=== PATIENT | female | born 1975 | race Caucasian/White ===

== ENCOUNTER → 2017-12-26 09:18 | Outpatient (CLI) | payer OTHER, SELFPAY ==
[2017-12-26 10:11] LABS: Add Manual Diff / Slide Review NO; Basophils Percent Auto 0.6 % (0-2); Eosinophils Percent Auto 2.1 % (2-4); Hematocrit 39.1 % (36-46); Hemoglobin 13.2 g/dL (12.0-16.0); Lymphocytes Percent Auto 32.7 % (25-40); Mean Corpuscular HGB Conc 33.9 % (30-36); Mean Corpuscular Hemoglobin 32.5 PG (26-34); Mean Corpuscular Volume 95.8 fL (80-100); Monocytes Percent Auto 11.5 % (3-14); Neutrophils Absolute Auto 2500 /uL (3000-5900); Neutrophils Percent Auto 53.1 % (50-75); Platelet Count 264 X10^3/uL (150-400); Red Blood Cell Count 4.08 X10^6/uL (4.0-5.2); Red Cell Distribution Width 12.7 % (11.6-14.8); White Blood Cell Count 4.8 X10^3/uL (4.5-11.0)
[2017-12-26 10:44] LABS: Alanine Aminotransferase 29 IU/L (9-52); Albumin 4.5 g/dL (3.5-5.0); Albumin Globulin Ratio 1.5 (1.0-2.8); Alkaline Phosphatase 45 U/L (38-126); Aspartate Aminotransferase 29 IU/L (14-36); Bilirubin Total 0.6 mg/dL (0.2-1.3); Blood Urea Nitrogen 12 mg/dL (7-17); Carbon Dioxide 27 mmol/L (22-32); Chloride 101 mmol/L (98-107); Estimated Glomerular Filt Rate > 60.0 mL/min (>60); Globulin 3.1 g/dL (1.7-4.1); Glucose 90 mg/dL (70-100); HEMOLYSIS < 15 (0-50); Potassium 4.2 mmol/L (3.4-5.1); Sodium 140 mmol/L (137-145); Total Protein 7.6 g/dL (6.3-8.2)
[2017-12-26 11:10] LABS: Cortisol AM (Before 10AM) 10.6 ug/dL (4.46-22.7)
== END ==
PROVIDERS: PCP Physician Assistant; Visit Provider Internal Medicine
DX: E27.49 Other adrenocortical insufficiency (principal); R55 Syncope and collapse
CPT/HCPCS: 36415; 80053; 82533; 85025

== ENCOUNTER → 2018-09-20 10:32 | Outpatient (CLI) | payer OTHER, SELFPAY ==
--- NOTE | 2018-09-20 | DI.RAD.S_ITS ---
PROCEDURE: XR HIP W PEL IF DONE LT MIN 4V INDICATIONS: PAIN TECHNIQUE: AP pelvis with lateral view(s) of the bilateral hip(s). COMPARISON: [facility], CR, [id number] W PEL IF PERFORMED, 01/18/2017, 16:51. FINDINGS: Bones: No fractures or dislocations. Pelvic ring appears intact. No suspicious bony lesions. Soft tissues: The visualized bowel gas pattern is normal. No suspicious soft tissue calcifications. IMPRESSION: No acute radiographic findings. Dictated by: Yesenia Anderson M.D. on 09/20/2018 at 12:35 Approved by: Yesenia Anderson M.D. on 09/20/2018 at 12:35
--- NOTE | 2018-09-20 | DI.RAD.S_ITS ---
PROCEDURE: XR LUMBAR SPINE 2-3V INDICATIONS: PAIN TECHNIQUE: 3 views of the lumbar spine were acquired. COMPARISON: None. FINDINGS: Bones: 5 [id number] vertebrae are present. There is normal bony alignment. No vertebral body compression fractures. No suspicious bony lesions. Soft tissues: Overlying bowel gas pattern is normal. No suspicious soft tissue calcifications. IMPRESSION: No acute radiographic findings. Dictated by: Yesenia Anderson M.D. on 09/20/2018 at 12:34 Approved by: Yesenia Anderson M.D. on 09/20/2018 at 12:35
== END ==
PROVIDERS: PCP Internal Medicine; Visit Provider Internal Medicine
DX: M54.9 Dorsalgia, unspecified (principal); S79.912A Unspecified injury of left hip, initial encounter; S79.911A Unspecified injury of right hip, initial encounter
CPT/HCPCS: 72100; 73522

== ENCOUNTER → 2019-03-13 13:56 | Outpatient (CLI) | payer OTHER, SELFPAY ==
--- NOTE | 2019-03-13 | DI.RAD.S_ITS ---
PROCEDURE: XR HAND LT MIN 3V INDICATIONS: BILATERAL PAIN TECHNIQUE: 3 views of the hand(s) acquired. COMPARISON: None. FINDINGS: Bones: No acute fractures or dislocations, but the morphology of the fifth metatarsal suggests a prior fracture with healing from the distant past and that area.. Carpal bones are normally aligned. No suspicious bony lesions. Soft tissues: No suspicious soft tissue calcifications. IMPRESSION: Mild degenerative osteoarthritic joint space narrowing at the distal interphalangeal joints, no erosive arthritis is found. Morphology of the fifth metacarpal suggests old trauma. Dictated by: Juan Luis Harrison M.D. on 03/13/2019 at 16:33 Approved by: Juan Luis Harrison M.D. on 03/13/2019 at 16:34
--- NOTE | 2019-03-13 | DI.RAD.S_ITS ---
PROCEDURE: XR HAND RT MIN 3V INDICATIONS: BILATERAL PAIN TECHNIQUE: 3 views of the hand(s) acquired. COMPARISON: [facility], CR, XR HAND LT MIN 3V, 03/13/2019, 13:55. FINDINGS: Bones: No fractures or dislocations. Carpal bones are normally aligned. No suspicious bony lesions. Only a slight degree of interphala ngeal degenerative joint space narrowing is noted at the distal joints of the fingers, no erosive arthritis is found. Soft tissues: No suspicious soft tissue calcifications. IMPRESSION: No erosive arthritis suspected. Only a slight degree of degenerative osteoarthritis is currently seen. Dictated by: Juan Luis Harrison M.D. on 03/13/2019 at 16:34 Approved by: Juan Luis Harrison M.D. on 03/13/2019 at 16:35
[2019-03-13 15:23] LABS: Erythrocyte Sedimentation Rate 4 MM/HR (0-20); Uric Acid 5.7 mg/dL (2.5-6.2)
[2019-03-20 16:22] LABS: ANA Screen, IFA NEGATIVE (NEGATIVE)
== END ==
PROVIDERS: PCP Internal Medicine; Visit Provider Internal Medicine
DX: M13.0 Polyarthritis, unspecified (principal)
CPT/HCPCS: 36415; 73130; 84550; 85651; 86038

== ENCOUNTER 2019-03-29 13:19 | Emergency (ER) | payer OTHER, SELFPAY ==
[2019-03-29 13:28] VITALS: BP 154/92; PULSE 86; RESP 16; TEMP 37.1; O2SAT 100
--- NOTE | 2019-03-29 13:35 | DI.RAD.S_ITS ---
PROCEDURE: XR ANKLE RT MIN 3V INDICATIONS: ankle pain, difficulty bearing weight due to pain TECHNIQUE: 3 views of the ankle were acquired. COMPARISON: None. FINDINGS: Bones: No fractures or dislocations. Ankle mortise is normally aligned. No suspicious bony lesions. Soft tissues: No tibiotalar joint effusion. Achilles tendon appears normal. IMPRESSION: No acute fracture of the right ankle. Dictated by: Arden Alicea M.D. on 03/29/2019 at 13:35 Approved by: Arden Alicea M.D. on 03/29/2019 at 13:36
--- NOTE | 2019-03-29 13:35 | DI.RAD.S_ITS ---
PROCEDURE: XR TIBIA FUBULA RT 2V INDICATIONS: pain TECHNIQUE: 2 views of the tibia and fibula were acquired. COMPARISON: None. FINDINGS: Bones: No fractures or dislocations. No suspicious bony lesions. Soft tissues: No suspicious soft tissue calcifications or masses. IMPRESSION: No acute fractures of the right lower leg. Dictated by: Arden Alicea M.D. on 03/29/2019 at 13:29 Approved by: Arden Alicea M.D. on 03/29/2019 at 13:35
--- NOTE | 2019-03-29 13:43 | ED_ITS ---
HPI - Extremity Injury (Lower) <BAMBI Zhu - Last Filed: 03/29/19 15:18> General Chief Complaint: Extremity Injury, Lower Stated Complaint: Bad Lower Right Leg Pain Time Seen by Provider: 03/29/19 13:24 Source: patient Mode of arrival: Wheelchair Limitations: no limitations History of Present Illness HPI Narrative: This is a 44-year-old female, nonsmoker, who presents to ED with right distal lower extremity and ankle discomfort for last 2 weeks and which is worst today. Patient was at walk-in clinic and referred to ED for further evaluation and imaging tests. Patient does not remember obvious injury to her affected leg but she remembers she had ski boots on several days prior her discomfort started. Patient reports pain worse with bearing weight, walking, driving, or putting any pressure on affected leg. Patient has been limping for last 1 week. Patient reports intact sensation but increasing pain with range of motion of her ankle and foot. Patient denies currently taking estrogen supplements, prolonged travel or in bed rest, or history of blood clots. Patient has been using ibuprofen and Tylenol arthritis for discomfort with limited efficacy. Related Data Home Medications Medication Instructions Recorded Confirmed acetaminophen 325 mg PO PRN PRN #0 06/23/16 albuterol sulfate 3 ml INH QIDP PRN #0 06/23/16 omeprazole 40 mg PO QDAY #0 06/27/16 docusate sodium 200 mg PO QDAYP PRN #0 12/05/16 levothyroxine 200 mcg PO DAILY #0 12/05/16 03/29/19 ibuprofen 600 mg PO TID 03/29/19 03/29/19 meloxicam 15 mg PO DAILY 03/29/19 03/29/19 methylphenidate HCl 10 mg PO BID 03/29/19 methylphenidate HCl 54 mg PO DAILY 03/29/19 03/29/19 Allergies Allergy/AdvReac Type Severity Reaction Status Date / Time grass pollen-perennial rye, Allergy Severe anaphylacti Verified 03/29/19 13:34 standar c [GRASS POLL-PERENNIAL RYE,STD] beclomethasone Allergy Mild anaphylaxis Verified 03/29/19 13:34 [BECLOMETHASONE] montelukast [MONTELUKAST] Allergy Unknown RASH Verified 03/29/19 13:34 Review of Systems <BAMBI Zhu - Last Filed: 03/29/19 15:18> Review of Systems Narrative: General: Denies fever, chills, fatigue, malaise, sweats. HEENT: Denies sinus pain, ear pain, sore throat, difficulty swallowing, dizziness. Respiratory: Denies dyspnea, cough, wheezing, hemoptysis, sputum. Cardiovascular: Denies chest pain, palpitations, orthopnea, edema. Gastrointestinal: Denies nausea, vomiting, abdominal pain, diarrhea, constipation, melena. : Denies dysuria, frequency, incontinence, hematuria, urinary retention. Musculoskeletal: See HPI Skin: Denies rash, skin lesions, or other. Reports faint bruise on anterior mid costello possibly from wearing ski boots. Neurologic: Denies weakness, headache, numbness, change in speech, confusion, seizures, incoordination. Psychiatric: No concerning psychosocial issues. 12-point review of systems is negative except for those stated above. Patient History <BAMBI Zhu - Last Filed: 03/29/19 15:18> Medical History Hypothyroidism (Acute) Surgical History Status post hysterectomy (06/27/16) Status post ovarian cystectomy (06/27/16) Social History Smoking Status: Never smoker Smoking Status: Never smoker alcohol intake frequency: a few times a week Substance Use Type: does not use Exam <BAMBI Zhu - Last Filed: 03/29/19 15:18> Narrative Exam Narrative: General appearance: well developed, well nourished, in no acute distress. Head: normocephalic, atraumatic, no scalp lesions, non-tender. ENT: Hearing grossly intact. Nose without bleeding, purulent discharge or deviation. Mucous membrane moist, no mucosal lesion. Throat without erythema, tonsillar hypertrophy or exudate. Uvula in midline, airway patent. Neck/Thyroid: neck supple, full range of motion, no visible masses or meningeal signs. No JVD, non-tender without lymphadenopathy. Skin: Faint ecchymosis on anterior mid costello. no suspicious rashes, lesions over other visible areas. Warm and dry and appropriate color for ethnicity. Heart: no clubbing, no cyanosis, no edema. S1 and S2 normal. RRR w/o murmurs, clicks, or bruits. Lungs: Breathing even and unlabored. No stridor. No accessory muscles used. Able to speak in full sentences. Chest: normal shape and expansion. Abdomen: non-obese, non-distended. Neurologic: alert and oriented. Cognitive exam, HEEL BURNISHER and PNS grossly intact on informal exam. Psych: good eye contact, normal affect. Initial Vital Signs Initial Vital Signs: Vital Signs Temperature 98.7 F 03/29/19 13:28 Pulse Rate 86 03/29/19 13:28 Respiratory Rate 16 03/29/19 13:28 Blood Pressure 154/92 H 03/29/19 13:28 Pulse Oximetry 100 03/29/19 13:28 Extrem Right lower extremity: full ROM, hip/thigh Details: no tenderness and no swelling, knee Details: normal to inspection; no tenderness, lower leg Details: normal to inspection, tenderness Location: of the distal tibia (Medial aspect ) and ecchymosis (Faint discoloration in mid anterior costello); no abrasions, no lacerations, no crepitus, no deformity and no unusual warmth, ankle Details: normal to inspection, tenderness, swelling, no edema and normal ROM; no abrasions, no lacerations and no crepitus and foot Details: normal capillary refill, no edema, vascular exam Details: dorsalis pedis pulse present, tendon exam Details: active flexion normal and active extension normal and motor- sensory exam Details: light-touch normal; no abrasion, no laceration and no ecchymosis; no edema and joint enlargement noted <Rush Ayala MD - Last Filed: 03/30/19 08:21> Initial Vital Signs Initial Vital Signs: Vital Signs Temperature 98.7 F 03/29/19 13:28 Pulse Rate 86 03/29/19 13:28 Respiratory Rate 16 03/29/19 13:28 Blood Pressure 154/92 H 03/29/19 13:28 Pulse Oximetry 100 03/29/19 13:28 Procedures <BAMBI Zhu - Last Filed: 03/29/19 15:18> Orthopedic Splinting/Casting Injury #1: Side: right Lower Extremity Injury Location: ankle (and lower limb) Lower Extremity Immobilizer: boot orthosis Post splinting neuro exam: intact Post splinting vascular exam: intact Placed by: Nursing Additional Comments: Patient declines crutches due to history of arthritis and difficult time using it. Scores <BAMBI Zhu - Last Filed: 03/29/19 15:18> GCS [place] coma scale eye opening: Spontaneous [place] coma scale verbal response: Orientated [place] coma scale motor response: Obey commands Baljit coma scale total score: 15 Wells' Criteria for DVT Active Cancer (Treatment within 6 months): No Bedridden recently >3 days or major surgery within 4 weeks: No Calf Swelling >3cm compared to other leg: No Collateral (nonvericose) superficial veins present: No Entire leg swollen: No Localized tenderness along the deep vein system: No Pitting edema, confined to symtomatic leg: No Paralysis, paresis, or recent plaster immobilization of ext: No Previously documented DVT: No Alternative dx to DVT as likely or more likely: Yes Wells' criteria for DVT: -2 Course <BAMBI Zhu - Last Filed: 03/29/19 15:18> Orders Ordered: ED Orders 03/29/19 13:35 XR ankle RT min 3V Stat XR tibia fibula RT 2V Stat Vital Signs Vital signs: Vital Signs - 8 hr 03/29/19 13:28 03/29/19 15:11 Temperature 98.7 F Pulse Rate 86 87 Respiratory Rate 16 16 Blood Pressure 154/92 H Blood Pressure [Left Arm] 140/86 Pulse Oximetry 100 100 <Rush Ayala MD - Last Filed: 03/30/19 08:21> Orders Ordered: ED Orders 03/29/19 13:35 XR ankle RT min 3V Stat XR tibia fibula RT 2V Stat Vital Signs Vital signs: Vital Signs - 8 hr 03/29/19 13:28 03/29/19 15:11 Temperature 98.7 F Pulse Rate 86 87 Respiratory Rate 16 16 Blood Pressure 154/92 H Blood Pressure [Left Arm] 140/86 Pulse Oximetry 100 100 MDM - Extremity Injury (Lower) <BAMBI Zhu - Last Filed: 03/29/19 15:18> Differential Diagnosis Differential diagnosis: Likely ankle sprain and strain, ankle fracture and other (Stress fracture) Medical Records Attestation: I reviewed the patient's medical records. Imaging Data XR-Tib/fib RT: Radiologist's Impression: [address] [address] XRay Report Signed Patient: Taylor Scruggs R#: [id number] : 1975Acct:[id number] Age/Sex: 44 / FDate of Service: 03/29/19 Loc: ED Accession Number: [id number] Procedure: XR tibia fibula RT 2V Ordering Provider: Kartik Roldan PROCEDURE: XR TIBIA FUBULA RT 2V INDICATIONS: pain TECHNIQUE: 2 views of the tibia and fibula were acquired. COMPARISON: None. FINDINGS: Bones: No fractures or dislocations. No suspicious bony lesions. Soft tissues: No suspicious soft tissue calcifications or masses. IMPRESSION: No acute fractures of the right lower leg. Dictated by: Arden Alicea M.D. on 03/29/2019 at 13:29 Approved by: Arden Alicea M.D. on 03/29/2019 at 13:35 XR-Ankle RT: Radiologist's Impression: [address] [address] XRay Report Signed Patient: Taylor Scruggs R#: [id number] : 1975Acct:[id number] Age/Sex: 44 / FDate of Service: 03/29/19 Loc: ED Accession Number: [id number] Procedure: XR ankle RT min 3V Ordering Provider: Kartik Roldan PROCEDURE: XR ANKLE RT MIN 3V INDICATIONS: ankle pain, difficulty bearing weight due to pain TECHNIQUE: 3 views of the ankle were acquired. COMPARISON: None. FINDINGS: Bones: No fractures or dislocations. Ankle mortise is normally aligned. No suspicious bony lesions. Soft tissues: No tibiotalar joint effusion. Achilles tendon appears normal. IMPRESSION: No acute fracture of the right ankle. Dictated by: Arden Alicea M.D. on 03/29/2019 at 13:35 Approved by: Arden Alicea M.D. on 03/29/2019 at 13:36 MDM Narrative Medical decision making narrative: This is a 44-year-old female who presents to ED with right ankle and distal lower extremity pain for last 2 weeks which became worse today. Patient reports not remember certain injury or trauma to affected leg but associated possibly after wearing ski boots. Patient has distal pulse intact with sensation. Patient was able to plantar and dorsal flex without difficulty. There was no significant swelling, redness, discomfort in calf. Wells DVT score was -2. X-ray test on right ankle and tib-fib did not appreciated fractures or dislocation. Patient offered crutches since pain increases with bearing weight but patient declined stating she has history of arthritis and has difficult time using this. Patient offered walking boots for comfort and support. Patient reminded to exercise or ankle a few times a day and return precautions were discussed with the patient. Patient advised to take [id number] Tylenol and or Motrin as needed for discomfort and elevate af fected leg as needed for swelling. Patient verbalized the understanding and agrees with the treatment plan. Discharge Plan Departure Patient Disposition: Home Clinical Impression: Sprain and strain of right ankle, Pain in inferior right lower extremity Discharge Date/Time: 03/29/19 15:23 Instructions: Medial Tibial Stress Syndrome, DI for Ankle Pain Activity Restrictions/Additional Instructions: You have been diagnosed with [right lower extremity pain and ankle strain. X- ray test on right ankle and tib-fib or dislocation today. You were provided with a walking boot for support and you declined using crutches.]. What to do: *Take your medications as directed. Please continue to use Tylenol and or Motrin as needed for discomfort. Tylenol 650 mg up to 4 times a day and ibuprofen 400 mg 3 to 4 times a day. Please make sure to take ibuprofen with food to decrease GI irritation. Elevate affected leg if there is swelling. Ensure to exercise your ankle a few times a day under is no acute discomfort. *Follow up with your primary care provider in 2-3 days, call for an appointment. You may need reimaging test if the pain persists and possibly a referral to physical therapist. Let them know you were seen in the ED and that we asked you to be seen in follow up. *Return to ED if you have any new, worsening, or concerning symptoms, such as [chest pain, breathing difficulty, unable to tolerate fluids, weakness/tingling/numbness to affected limb, redness/warmth/increasing swelling/calf pain or any acute concerns]. Prescriptions: No Action albuterol sulfate 2.5 MG/3 ML solution for nebulization 3 ml INH QIDP PRNQty: 0 RF: 0 acetaminophen 325 MG tablet 325 mg PO PRN PRN (Reason: pain) Qty: 0 RF: 0 omeprazole 20 MG capsule,delayed release(DR/EC) 40 mg PO QDAY Qty: 0 RF: 0 levothyroxine 200 MCG tablet 200 mcg PO DAILY Qty: 0 RF: 0 docusate sodium 100 MG capsule 200 mg PO QDAYP PRNQty: 0 RF: 0 methylphenidate HCl 10 mg tablet 10 mg PO BID RF: 0 meloxicam 15 mg tablet 15 mg PO DAILY RF: 0 methylphenidate HCl 54 mg tablet extended release 24hr 54 mg PO DAILY RF: 0 ibuprofen 600 mg tablet 600 mg PO TID RF: 0 Referrals: Dennis Beckman MD [Primary Care Provider] -
[2019-03-29 15:11] VITALS: BP 140/86; PULSE 87; RESP 16; O2SAT 100
== END 2019-03-29 15:23 | disposition home or self-care (01) ==
PROVIDERS: Emergency Provider Nurse Practitioner Family; PCP Internal Medicine
DX: S93.401A Sprain of unspecified ligament of right ankle, initial encounter (principal); S96.911A Strain of unspecified muscle and tendon at ankle and foot level, right foot, initial encounter; M79.604 Pain in right leg
CPT/HCPCS: 73590; 73610; 99281; 99283

== ENCOUNTER → 2019-05-12 15:00 | Outpatient (CLI) | payer OTHER, SELFPAY ==
[2019-05-15 11:58] LABS: COVID19 Sendout Not Detected (Not Detected)
== END ==
PROVIDERS: PCP Internal Medicine; Visit Provider Physician Assistant
DX: R05 Cough (principal)
CPT/HCPCS: 87635

== ENCOUNTER → 2020-04-22 09:41 | Outpatient (CLI) | payer OTHER, SELFPAY ==
[2020-04-22] MEDS: COVID-19 VACC, Ad26(JANSSEN)/PF 0.5 ML IM (09:57)
== END ==
PROVIDERS: PCP Internal Medicine; Visit Provider Internal Medicine
DX: Z23 Encounter for immunization (principal)
CPT/HCPCS: 0031A; 91303

== ENCOUNTER → 2020-08-19 16:31 | Outpatient (CLI) | payer OTHER, SELFPAY ==
--- NOTE | 2020-08-19 | DI.RAD.S_ITS ---
PROCEDURE: XR FOOT RT MIN 3V INDICATIONS: Right foot pain TECHNIQUE: 3 views of the foot were acquired. COMPARISON: None. FINDINGS: Bones: Moderate hallux valgus deformity and medial bunion. Hammertoe deformity of the 4th and 5th digits. No significant degenerative changes otherwise. No acute finding. Soft tissues: No tibiotalar joint effusion. Achilles tendon appears normal. IMPRESSION: Moderate hallux valgus deformity and medial bunion. Dictated by: Jesus Crump M.D. on 08/19/2020 at 16:47 Approved by: Jesus Crump M.D. on 08/19/2020 at 16:48
== END ==
PROVIDERS: Family Provider Internal Medicine; PCP Internal Medicine; Referring Provider Internal Medicine; Visit Provider Internal Medicine
DX: M79.671 Pain in right foot (principal); M20.11 Hallux valgus (acquired), right foot; M21.611 Bunion of right foot
CPT/HCPCS: 73630

== ENCOUNTER → 2020-09-13 11:50 | Outpatient (CLI) | payer OTHER, SELFPAY ==
[2020-09-13 12:13] LABS: COVID19 -Nasal RAPID Negative (Negative)
== END ==
PROVIDERS: Family Provider Internal Medicine; PCP Internal Medicine; Visit Provider Student in an Organized Health Care Education/Training Program
DX: R05 Cough (principal); R09.81 Nasal congestion; Z20.822 Contact with and (suspected) exposure to COVID-19
CPT/HCPCS: 87635

== ENCOUNTER → 2020-11-18 10:51 | Outpatient (CLI) | payer OTHER, SELFPAY ==
[2020-11-18 12:23] LABS: Free T4, Direct Thyroxine 1.05 ng/dL (0.78-2.19)
[2020-11-18 12:37] LABS: Thyroid Stimulating Hormone 0.294 uIU/mL (0.47-4.68)
== END ==
PROVIDERS: Family Provider Internal Medicine; PCP Internal Medicine; Referring Provider Internal Medicine Endocrinology, Diabetes & Metabolism; Visit Provider Internal Medicine Endocrinology, Diabetes & Metabolism
DX: Z85.850 Personal history of malignant neoplasm of thyroid (principal)
CPT/HCPCS: 36415; 84439; 84443

== ENCOUNTER → 2020-12-25 11:05 | Outpatient (CLI) | payer OTHER, SELFPAY ==
[2020-12-25] MEDS: COVID-19 VACC #3, MRNA(MOD) 50 MCG/0.25 ML VIAL IM (11:12)
== END ==
PROVIDERS: Family Provider Internal Medicine; PCP Internal Medicine; Visit Provider Internal Medicine
DX: Z23 Encounter for immunization (principal)
CPT/HCPCS: 0013A; 91301

== ENCOUNTER → 2021-01-27 11:17 | Outpatient (CLI) | payer OTHER, SELFPAY ==
--- NOTE | 2021-01-27 11:24 | DI.RAD.S_ITS ---
PROCEDURE: XR CHEST 2V INDICATIONS: CHRONIC COUGH TECHNIQUE: 2 views of the chest were acquired. COMPARISON: [facility], CT, ANGIOGRAPHY CHEST AND ABDOMEN, 03/08/2014, 14:22. [facility], CR, CHEST 2 VIEW, 10/28/2016, 18:58. [facility], , CHEST 2 VIEW, 03/03/2016, 15:38. FINDINGS: Surgical changes and devices: Left chest clips. Lungs and pleura: Lungs are clear. No pleural effusions or pneumothorax. Mediastinum: Mediastinal contours are normal. Heart size is normal. Bones and chest wall: No suspicious bony abnormalities. Soft tissues appear unremarkable. IMPRESSION: No acute cardiopulmonary abnormality. Dictated by: Kurtis Tena M.D. on 01/27/2021 at 11:41 Approved by: Kurtis Tena M.D. on 01/27/2021 at 11:43
== END ==
PROVIDERS: Family Provider Internal Medicine; PCP Internal Medicine; Referring Provider Internal Medicine; Visit Provider Internal Medicine
DX: R05.3 Chronic cough (principal)
CPT/HCPCS: 71046

== ENCOUNTER → 2021-04-22 10:36 | Outpatient (CLI) | payer OTHER, SELFPAY ==
--- NOTE | 2021-04-22 10:38 | DI.RAD.S_ITS ---
PROCEDURE: XR RIBS RT MIN 3V W CXR 1V INDICATIONS: right-sided rib pain TECHNIQUE: 2 views of the right ribs were acquired, along with a single view chest. COMPARISON: None. FINDINGS: Surgical changes and devices: None. Bones and chest wall: No fractures or dislocations. No suspicious bony lesions. Overlying soft tissues appear unremarkable. A benign bone island is seen at the tip of T8 on the right. Lungs and pleura: No pleural effusions or pneumothorax. Lungs appear clear. Mediastinum: Mediastinal contours appear normal. Heart size is normal. IMPRESSION: No acute cardiopulmonary abnormality. No rib fracture. Dictated by: Toan Pearce M.D. on 04/22/2021 at 11:00 Approved by: Toan Pearce M.D. on 04/22/2021 at 11:02
== END ==
PROVIDERS: Family Provider Internal Medicine; PCP Internal Medicine; Referring Provider Nurse Practitioner Family; Visit Provider Nurse Practitioner Family
DX: R07.81 Pleurodynia (principal)
CPT/HCPCS: 71101

== ENCOUNTER → 2021-04-27 14:46 | Outpatient (CLI) | payer OTHER, SELFPAY ==
--- NOTE | 2021-04-27 | DI.RAD.S_ITS ---
PROCEDURE: XR LUMBAR SPINE 2-3V INDICATIONS: fall, lumbar pain TECHNIQUE: 2 views of the lumbar spine were acquired. COMPARISON: [facility], CR, XR LUMBAR SPINE 2-3V, 09/20/2018, 10:36. FINDINGS: Bones: 5 [id number] vertebrae are present. There is normal bony alignment. No vertebral body compression fractures. No suspicious bony lesions. Trace osteophytosis is present at L1-2 and L3-4. Soft tissues: Overlying bowel gas pattern is normal. No suspicious soft tissue calcifications. IMPRESSION: Very mild degenerative change of the lumbar spine. No acute compression deformities. Dictated by: Yesenia Anderson M.D. on 04/27/2021 at 15:50 Approved by: Yesenia Anderson M.D. on 04/27/2021 at 15:51
--- NOTE | 2021-04-27 | DI.RAD.S_ITS ---
PROCEDURE: XR SACRUM COCCYX MIN 2V INDICATIONS: fall, sacral pain TECHNIQUE: 3 views of the sacrum and coccyx acquired. COMPARISON: None. FINDINGS: Bones: No acute fracture visualized. Subtle obliquely oriented radiolucency is noted within the left intertrochanteric femur. No other suspicious bony lesions. Soft tissues: Visualized bowel gas pattern is normal. No suspicious soft tissue densities. IMPRESSION: No definite fractures visualized. Question subtle radiolucency within the left proximal femur which may represent shadows from overlapping soft tissues. However, if the patient endorses focal left hip pain, CT could be used to exclude femoral fracture. Dictated by: Yesenia Anderson M.D. on 04/27/2021 at 16:03 Approved by: Yesenia Anderson M.D. on 04/27/2021 at 16:06
== END ==
PROVIDERS: Family Provider Internal Medicine; PCP Internal Medicine; Referring Provider Chiropractor; Visit Provider Chiropractor
DX: S33.5XXA Sprain of ligaments of lumbar spine, initial encounter (principal); M54.51 Vertebrogenic low back pain; X58.XXXA Exposure to other specified factors, initial encounter
CPT/HCPCS: 72100; 72220

== ENCOUNTER 2021-04-27 15:13 | Emergency (ER) | payer OTHER, SELFPAY ==
[2021-04-27 15:19] VITALS: BP 172/104; PULSE 122; RESP 24; TEMP 36.8; O2SAT 100
--- NOTE | 2021-04-27 15:42 | ED.BACK ---
HPI - Back Pain/Injury General Chief Complaint: Back Pain/Injury Stated Complaint: EXTREME LOWER BACK PAIN Time Seen by Provider: 04/27/21 15:30 Source: patient History of Present Illness HPI Narrative: Patient is a 46-year-old female who has a history of recurrent thyroid cancer not currently on chemo or radiation is presenting today with severe back pain. 3 days ago she fell at [place] or trying to learn how to snowboard. She her her back. She had some pain but was still able to move. She went to the chiropractor yesterday who said that her leg with 3 in shorter than the other leg. He did some manipulations. Today she is having severe back pain. Barely able to walk. She took 800 mg of ibuprofen at 11:00 a.m. and has had any relief. She has no changes in bowel or bladder habits. She says trying to have a bowel movement is very excruciating. She says she heard a pop in her back as some point over last couple of days as well. He has not had any fever or chills. Is a tingling or weakness She did outpatient x-rays ordered of her sacrum and lumbar spine by the chiropractor today Related Data Home Medications Medication Instructions Recorded Confirmed acetaminophen 325 mg tablet 325 mg PO PRN PRN #0 06/23/16 04/22/21 albuterol sulfate 3 ml INH QIDP PRN #0 06/23/16 04/22/21 omeprazole 20 mg capsule,delayed 40 mg PO QDAY #0 06/27/16 04/22/21 release docusate sodium 100 mg capsule 200 mg PO QDAYP PRN #0 12/05/16 04/22/21 levothyroxine 200 mcg tablet 200 mcg PO DAILY #0 12/05/16 04/22/21 ibuprofen 600 mg tablet 600 mg PO TID 03/29/19 04/22/21 meloxicam 15 mg tablet 15 mg PO DAILY 03/29/19 04/22/21 methylphenidate HCl 10 mg tablet 10 mg PO BID 03/29/19 04/22/21 methylphenidate HCl 54 mg 54 mg PO DAILY 03/29/19 04/22/21 tablet,extended release 24 hr Previous Rx's Medication Instructions Recorded diazepam 5 mg tablet (Valium) 5 mg PO Q12HR PRN #14 tab 04/27/21 hydrocodone 5 mg-acetaminophen 325 1 tab PO Q6H PRN #14 tab 04/27/21 mg tablet Allergies Allergy/AdvReac Type Severity Reaction Status Date / Time grass pollen-perennial rye, Allergy Severe anaphylacti Verified 04/27/21 17:51 standar c [GRASS POLL-PERENNIAL RYE,STD] beclomethasone Allergy Mild anaphylaxis Verified 04/27/21 17:51 [BECLOMETHASONE] montelukast [MONTELUKAST] Allergy Unknown RASH Verified 04/27/21 17:51 Review of Systems Review of Systems Narrative: GENERAL: Denies chills, fatigue, malaise, fever, sweats, travel HEENT: Denies sinus pain, ear pain, sore throat, difficulty swallowing, neck pain RESPIRATORY: Denies dyspnea, cough, wheezing, hemoptysis, sputum. CARDIOVASCULAR: Denies chest pain, palpitations, orthopnea, edema GASTROINTESTINAL: Denies nausea, vomiting, abdominal pain, diarrhea, constipation, melena. : Denies dysuria, frequency, incontinence, hematuria, urinary retention, flank pain. MUSCULOSKELETAL: See HPI SKIN: No rash, no erythema, no pruritus NEUROLOGIC: Denies weakness, dizziness, headache, numbness, change in speech, confusion PSYCHIATRIC: No concerning psychosocial issues. 12 point review of systems is negative except for those stated above and HPI Patient History Medical History (Updated 04/27/21 @ 18:50 by Ame Spaulding DO) Hypothyroidism Surgical History Status post hysterectomy (06/27/16) Status post ovarian cystectomy (06/27/16) Social History Smoking Status: Never smoker Smoking Status: Never smoker alcohol intake frequency: a few times a week Substance Use Type: does not use Exam Initial Vital Signs Initial Vital Signs: Vital Signs Temperature 98.2 F 04/27/21 15:19 Pulse Rate 122 H 04/27/21 15:19 Respiratory Rate 24 04/27/21 15:19 Blood Pressure 172/104 H 04/27/21 15:19 Pulse Oximetry 100 04/27/21 15:19 GENERAL: Alert 46-year-old female appears in severe pain HEENT: Head atraumatic,EOMI, pupils reactive, face symmetric, moist mucous membranes CARDIOVASCULAR: Regular rate and rhythm without murmurs, rubs or gallops. RESPIRATORY: Breath sounds equal bilaterally, no wheezes rales or rhonchi. ABDOMEN: Soft, nontender. Normoactive bowel sounds all 4 quadrants. No guarding or rebound. BACK: Diffuse lower lumbar pain no midline tenderness EXTREMITIES: Normal range of motion, no clubbing or edema. Neurovascularly intact NEUROLOGICAL: Alert and oriented x4. Able to lift both legs more pain in her back with right leg lifting SKIN: Warm, dry, no laceration, no petechiae, no rashes or lesions. Course Orders Ordered: Discontinued Medications Diazepam (Diazepam 5 Mg Tablet) 5 mg PO NOW ONE Stop: 04/27/21 15:52 Last Admin: 04/27/21 16:13 Dose: 5 mg Documented by: SAE Hydromorphone HCl (Hydromorphone 2 Mg Inj) 1 mg SUBCUT Q4H PRN PRN Reason: Pain, Severe (7-10) Last Admin: 04/27/21 16:13 Dose: 1 mg Documented by: SAE Ketorolac Tromethamine (Ketorolac 30 Mg/Ml Vial) 30 mg IM NOW ONE Stop: 04/27/21 17:15 Last Admin: 04/27/21 17:29 Dose: 30 mg Documented by: SAE Vital Signs Vital signs: Vital Signs - 8 hr 04/27/21 15:19 Temperature 98.2 F Pulse Rate 122 H Respiratory Rate 24 Blood Pressure 172/104 H Pulse Oximetry 100 MDM - Back Pain/Injury Lab Data Labs: Lab Results 04/27/21 Range/Units 17:25 Urine RBC 0-1/hpf (0-5/HPF) Urine WBC 0-1/hpf (0-5/HPF) Ur Squamous Epith Cells 0-1 /hpf (0-5/HPF) Urine Bacteria Occasional (0-1) (None) Ur Culture Indicated? Cult not indicated Urine Dip Bedside Urine Glucose Negative Bedside Urine Bilirubin - Negative Bedside Urine Ketone +/- 5 Urine Specific [place] 1.010 Bedside Urine pH 6.5 Bedside Urine Protein + 30 Bedside Urine Urobilinogen - Negative Bedside Urine Nitrite - Negative Bedside Urine Leukocytes - Negative Esterase Imaging Data Extremity x-ray #1: Radiologist's Impression: PROCEDURE:? XR LUMBAR SPINE 2-3V ? INDICATIONS:? fall, lumbar pain ? TECHNIQUE:? 2 views of the lumbar spine were acquired.? ? COMPARISON:? [facility], CR, XR LUMBAR SPINE 2-3V, 09/20/2018, 10:36. ? FINDINGS:? ? Bones:? 5 [id number] vertebrae are present.? There is normal bony alignment.? No vertebral body compression fractures.? No suspicious bony lesions.? Trace osteophytosis is present at L1-2 and L3-4. ? Soft tissues:? Overlying bowel gas pattern is normal.? No suspicious soft tissue calcifications.? ? ? IMPRESSION:? Very mild degenerative change of the lumbar spine.? No acute compression deformities. ? ? Dictated by: Yesenia Anderson M.D. on 04/27/2021 at 15:50 ? Extremity x-ray #2: Radiologist's Impression: PROCEDURE:? XR SACRUM COCCYX MIN 2V ? INDICATIONS:? fall, sacral pain ? TECHNIQUE:? 3 views of the sacrum and coccyx acquired.? ? COMPARISON:? None. ? FINDINGS:? ? Bones:? No acute fracture visualized.? Subtle obliquely oriented radiolucency is noted within the left intertrochanteric femur.? No other suspicious bony lesions. ? Soft tissues:? Visualized bowel gas pattern is normal.? No suspicious soft tissue densities.? ? IMPRESSION:? No definite fractures visualized.? Question subtle radiolucency within the left proximal femur which may represent shadows from overlapping soft tissues.? However, if the patient endorses focal left hip pain, CT could be used to exclude femoral fracture.? ? ? Dictated by: Yesenia Anderson M.D. on 04/27/2021 at 16:03 ? ? CT pelvis: Radiologist's Impression: PROCEDURE:? CT SACRUM ? INDICATIONS:? pain and injury ? TECHNIQUE:? Noncontrast 3 mm thick sections acquired through the sacrum and coccyx, with sagittal and oblique coronal reformats then constructed.? For radiation dose reduction, the following was used:? automated exposure control.? ? COMPARISON:? None. ? FINDINGS:? Image quality:? Excellent.? ? Bones:? There is a subtle impaction fracture involving the lower aspect of the left S5 neural foramen.? ? No suspicious bony lesions.? There are scattered tiny sclerotic bone islands in the sacrum and bilateral pelvic bones.? No suspicious periostitis.? Sacroiliac joints appear intact bilaterally.? Trace vacuum phenomenon in both SI joints, right slightly more so than left.? ? Soft tissues:? No significant soft tissue thickening overlying the left S5 fracture.? No presacral masses.? Visualized rectum and inferior bowel loops are normal in size and caliber.? No pathologic free pelvic fluid.? ? IMPRESSION:? ? 1. Subtle, nondisplaced left-sided distal sacral impaction fracture as described.? ? 2. Minor degenerative vacuum phenomenon in both sacroiliac joints.? ? Dictated by: Lyn Costa M.D. on 04/27/2021 at 18:14 ? ? CT lumbar: Radiologist's Impression: PROCEDURE:? CT LUMBAR SPINE WO CON ? INDICATIONS:? back pain and inury ? TECHNIQUE:? Noncontrast 3 mm thick sections acquired from the T12 level to the sacrum.? Sagittal and coronal reformats were constructed.? For radiation dose reduction, the following was used:? automated exposure control.? ? COMPARISON:? None. ? FINDINGS:? Image quality:? Excellent.? ? Bones:? There is normal bony alignment.? Normal disc spacing.? No acute vertebral body compression fractures.? No suspicious lytic or blastic bony lesions.? No pars defects.? ? T12-L1:? Normal ? L1-L2:? Normal ? L2-L3:? Normal ? L3-L4:? Normal ? L4-L5:? Normal ? L5-S1:? Normal ? Soft tissues:? No retroperitoneal masses or hematomas.? Visualized aorta is normal in caliber.? ? ? IMPRESSION:? Normal CT of the lumbar spine.? No evidence of acute injury. ? ? Dictated by: Lyn Costa M.D. on 04/27/2021 at 18:11 ? [facility] Narrative Medical decision making narrative: Patient has no neurologic deficits. She is unclear bit of pain. His CT does confirm a very subtle sacral fracture. As she likely has some muscle spasm and a fracture. She is given pain medicine which does seem to help along with muscle relaxer. She is given a walker and she does ambulate in ED. at this time she may require outpatient MRI however at this time pain control possible physical therapy and outpatient management. Discharge Plan Departure Patient Disposition: Home Clinical Impression: Closed sacral fracture Instructions: Sacral Stress Fracture Activity Restrictions/Additional Instructions: *You have been diagnosed with sacral fracture *What to do: You do have a fracture on the left side of her sacrum. Walk as tolerated. Light walking is encouraged. You may find that you need a walker or crutches. No heavy lifting. I also think that her back is also in spasm. So try a heating pad and light stretches *Continue to take medications as directed--> SENT TO [facility] [place] 1 tablet every 6 hours if needed for severe pain Ibuprofen 600 mg every 6 hours if needed for mabw-fm-urewybpe pain Valium 5 mg every 12 hours if needed for muscle spasm *Follow up with your primary care provider in 2-3 days or call [phone] *Return to ER if you should have increasing pain leg numbness tingling or weakness, change in bowel or bladder or any new, worsening or concerning symptoms CONTROLLED SUBSTANCE DISCHARGE (Narcotoic/benzodiazepine/Flexeril/Phenergan) 1. You have been prescribed narcotic medications, it does have acetaminophen/Tylenol/paracetamol in it, DO NOT TAKE MORE THAN 4,00mg in 24 hours of Tylenol. TRAMADOL DOES NOT CONTAIN TYLENOL 2. Please understand that we cannot provide further refills of narcotics, benzodiazepines or controlled substances through the ED and her pain management will need to be through your provider. 3. While on these medications you cannot drive or operate heavy machinery. 4. You cannot sign legal documents or perform any duties such as this. 5. As long as you're taking opiate pain medications he should also be taking a stool softener such as Colace, Dulcolax, MiraLAX or prune juice, to help avoid constipation. Prescriptions: New hydrocodone-acetaminophen 5-325 mg tablet 1 tab PO Q6H PRN (Reason: pain) Qty: 14 0RF diazepam [Valium] 5 mg tablet 5 mg PO Q12HR PRN (Reason: muscle spasm) Qty: 14 0RF No Action albuterol sulfate 2.5 MG/3 ML solution for nebulization 3 ml INH QIDP PRNQty: 0 0RF acetaminophen 325 MG tablet 325 mg PO PRN PRN (Reason: pain) Qty: 0 0RF omeprazole 20 MG capsule,delayed release(DR/EC) 40 mg PO QDAY Qty: 0 0RF levothyroxine 200 MCG tablet 200 mcg PO DAILY Qty: 0 0RF docusate sodium 100 MG capsule 200 mg PO QDAYP PRNQty: 0 0RF methylphenidate HCl 10 mg tablet 10 mg PO BID 0RF meloxicam 15 mg tablet 15 mg PO DAILY 0RF methylphenidate HCl 54 mg tablet extended release 24hr 54 mg PO DAILY 0RF ibuprofen 600 mg tablet 600 mg PO TID 0RF Referrals: Dennis Beckman MD [Primary Care Provider] -
[2021-04-27] MEDS: HYDROMORPHONE 2 MG INJ 1 MG SUBCUT (16:13)
[2021-04-27] MEDS: diazePAM 5 MG TABLET PO (16:13)
--- NOTE | 2021-04-27 17:25 | DI.CT.S_ITS ---
PROCEDURE: CT LUMBAR SPINE WO CON INDICATIONS: back pain and inury TECHNIQUE: Noncontrast 3 mm thick sections acquired from the T12 level to the sacrum. Sagittal and coronal reformats were constructed. For radiation dose reduction, the following was used: automated exposure control. COMPARISON: None. FINDINGS: Image quality: Excellent. Bones: There is normal bony alignment. Normal disc spacing. No acute vertebral body compression fractures. No suspicious lytic or blastic bony lesions. No pars defects. T12-L1: Normal L1-L2: Normal L2-L3: Normal L3-L4: Normal L4-L5: Normal L5-S1: Normal Soft tissues: No retroperitoneal masses or hematomas. Visualized aorta is normal in caliber. IMPRESSION: Normal CT of the lumbar spine. No evidence of acute injury. Dictated by: Lyn Costa M.D. on 04/27/2021 at 18:11 Approved by: Lyn Costa M.D. on 04/27/2021 at 18:14
--- NOTE | 2021-04-27 17:25 | DI.CT.S_ITS ---
PROCEDURE: CT SACRUM INDICATIONS: pain and injury TECHNIQUE: Noncontrast 3 mm thick sections acquired through the sacrum and coccyx, with sagittal and oblique coronal reformats then constructed. For radiation dose reduction, the following was used: automated exposure control. COMPARISON: None. FINDINGS: Image quality: Excellent. Bones: There is a subtle impaction fracture involving the lower aspect of the left S5 neural foramen. No suspicious bony lesions. There are scattered tiny sclerotic bone islands in the sacrum and bilateral pelvic bones. No suspicious periostitis. Sacroiliac joints appear intact bilaterally. Trace vacuum phenomenon in both SI joints, right slightly more so than left. Soft tissues: No significant soft tissue thickening overlying the left S5 fracture. No presacral masses. Visualized rectum and inferior bowel loops are normal in size and caliber. No pathologic free pelvic fluid. IMPRESSION: 1. Subtle, nondisplaced left-sided distal sacral impaction fracture as described. 2. Minor degenerative vacuum phenomenon in both sacroiliac joints. Dictated by: Lyn Costa M.D. on 04/27/2021 at 18:14 Approved by: Lyn Costa M.D. on 04/27/2021 at 18:20
[2021-04-27] MEDS: KETOROLAC 30 MG/ML VIAL IM (17:29)
[2021-04-27 17:33] VITALS: BP 156/75; PULSE 81; RESP 18; O2SAT 98
[2021-04-27 18:07] LABS: Bacteria Urine Occasional (0-1); Culture Indicated Urine Cult Not Indicated; RBC Urine 0-1/HPF (0-5/HPF); Squamous Epithelial Cell Urine 0-1 /HPF (0-5/HPF); WBC Urine 0-1/HPF (0-5/HPF)
== END 2021-04-27 19:05 | disposition home or self-care (01) ==
PROVIDERS: Emergency Provider Emergency Medicine; Family Provider Internal Medicine; PCP Internal Medicine
DX: S32.19XA Other fracture of sacrum, initial encounter for closed fracture (principal); W19.XXXA Unspecified fall, initial encounter; Y93.23 Activity, snow (alpine) (downhill) skiing, snowboarding, sledding, tobogganing and snow tubing; S33.5XXA Sprain of ligaments of lumbar spine, initial encounter; M54.51 Vertebrogenic low back pain; X58.XXXA Exposure to other specified factors, initial encounter
CPT/HCPCS: 72100; 72131; 72220; 81003; 81015; 96372; 99284; J1170; J1885

== ENCOUNTER → 2021-08-01 12:29 | Outpatient (CLI) | payer OTHER, SELFPAY ==
[2021-08-01 15:02] LABS: Influenza A - CEPHEID Flu A NEGATIVE (NEGATIVE); Influenza B - CEPHEID Flu B NEGATIVE (NEGATIVE)
[2021-08-01 15:17] LABS: COVID-19 CEPHEID PCR (VTM/NP) Negative (Negative)
== END ==
PROVIDERS: Family Provider Internal Medicine; PCP Internal Medicine; Visit Provider Nurse Practitioner Family
DX: R09.81 Nasal congestion (principal)
CPT/HCPCS: 0240U

== ENCOUNTER → 2021-12-15 13:51 | Outpatient (RCR) | payer OTHER, SELFPAY ==
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
--- NOTE | 2020-07-29 17:56 | PT.OPPOC ---
Physical, Occupational & Speech Therapy At [facility] Current Diagnoses Radiculopathy, cervical region (07/29/20) Visit Care Team Role Provider Type Dennis Beckman MD Family Provider Physician Primary Care Provider Specialty: Internal Medicine Address: [address] [place] [address], [id number] Email: [email or web address] Taqueria Snider MD Attending Provider Non-Staff Referring Provider Specialty: Neurosurgery Address: [address] [place] [address], [phone] Email: Plan Of Care PT-OP-T Assessment and Plan Start: 07/28/20 15:13 Freq: Status: Active Protocol: Document 07/29/20 11:15 AW (Rec: 07/29/20 17:56 AW [email or web address]) Physical Therapy Assessment Rehab Potential Rehabilitation Potential Good Evaluation Complexity Number of Personal Factors/Comorbidities 1-2 Number of Body Systems Impaired 1-2 Clinical Presentation at Evaluation Evolving Impairments Impairments Functional Activities, Functional Mobility,Pain, Posture,ROM,Sensation,Strength Goals Three Impairment posture Short Term Goal (STG) Pt will demonstrate uncued postural correction during exercise for improved alignment and decreased stress on cervical structures. STG Duration 4 weeks - 08/26/20 Central Processing Technician Goal (LTG) Pt will demonstrate uncued postural correction during functional activities such as lifting for reduced stress on cervical structures and improved ability to participate in work activities . LTG Duration 12 weeks - 10/21/20 Two Impairment ROM Short Term Goal (STG) Pt will improve lateral flexion to 20 degrees bilaterally without increase in baseline pain STG Duration 4 weeks - 08/26/20 [facility] Goal (LTG) Pt will improve cervical rotation to 45 degrees bilaterally or greater for ability to safely operate a motor vehicle. LTG Duration 12 weeks - 10/21/20 One Impairment lacks HEP Short Term Goal (STG) Pt will be independent with HEP for support of therapy services provided in clinic. STG Duration 4 weeks - 08/26/20 [facility] Goal (LTG) Pt will perform maintenance HEP for pain management and to demonstrate improved self- efficacy regarding cervical motion LTG Duration 12 weeks - 10/21/20 Assessment Summary Assessment Taylor is a 45 yo woman who presents to outpatient PT as a low complexity evaluation with complaints of cervical pain and tingling/numbness in right arm and hand. Pt has history of cervical fusion likely at C5-6 approximately 6 years ago and recovered well. She is now experiencing bouts of neck pain which she finds incapacitating. On evaluation, her pain is severe and limits thoroughness of assessment. She has impaired ROM, strength , and postural alignment affecting her ability to effectively perform her work duties. 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 She is expected to benefit from skilled therapy to address these deficits and improve her ability to participate in family and work activities. Physical Therapy Plan Frequency and Duration Frequency of Treatment 2x/Week Duration of Treatment 12 weeks Plan of Care Start Date 07/29/20 Plan of Care End Date 10/21/20 Therapeutic Interventions Therapeutic Interventions Home Exercise Program,Joint Mobilizations,Manual Therapy, Neuromuscular Re-education, Patient/Caregiver Education, Self-Care/Home Management, Sensory Integration,Soft Tissue Mobilization,Taping, Therapeutic Activities, Therapeutic Exercises Modalities Cold Pack/Ice Massage,Electric Stimulation,Hot Packs Next Visit Focus/Plan Next Note Type Treatment Note Next Visit Plan Manual as tolerated, review HEP for independent performance Plan of Care Dates Plan of Care Start Date 07/29/20 Plan of Care End Date 10/21/20 Electronically Signed by: Mena Akers, PT 07/29/20 [id number] Please Sign and Return: I have reviewed this Plan of Care and certify that the skilled therapy services above are required to meet the patient?s needs. Physician Signature Date Printed Name and Credentials Clinical Instructor Signature Printed Name and Credentials
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
--- NOTE | 2020-08-12 15:50 | PT-OP ANOTE ---
Pt's spouse called same day to cancel and reschedule for after August travel. Pt reminded of attendance policy.
--- NOTE | 2020-08-14 11:30 | PT-OP ANOTE ---
Pt arrives to session one hour early. She had the wrong time written for today's session and has to leave for another scheduled dr kirby
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
--- NOTE | 2020-09-30 11:40 | PT.OPPOC ---
Physical, Occupational & Speech Therapy At [facility] Current Diagnoses Radiculopathy, cervical region (09/30/20) Visit Care Team Role Provider Type Dennis Beckman MD Family Provider Physician Primary Care Provider Specialty: Internal Medicine Address: [address] [place] [address], [id number] Email: [email or web address] Taqueria Snider MD Attending Provider Non-Staff Referring Provider Specialty: Neurosurgery Address: [address] [place] [address], [phone] Email: Plan Of Care PT-OP-T Assessment and Plan Start: 07/28/20 15:13 Freq: Status: Active Protocol: Document 09/30/20 11:15 AW (Rec: 09/30/20 11:39 AW [id number]) Physical Therapy Assessment Rehab Potential Rehabilitation Potential Good Evaluation Complexity Number of Personal Factors/Comorbidities 1-2 Number of Body Systems Impaired 1-2 Impairments Impairments Pain,ROM,Soft Tissue Mobility, Strength Goals Five Impairment NDI Mcc Goal (LTG) Pt will improve NDI from 61% impairment to 40% impairment or less to demonstrate improved participation in daily activities. LTG Duration 11/27/20 Four Impairment participation in play with pt' s children Solderer Dipper Goal (LTG) Pt will throw a football with her child for 15 minutes without increase in baseline pain. LTG Duration 11/27/20 Three Impairment posture Short Term Goal (STG) Pt will demonstrate uncued postural correction during exercise for improved alignment and decreased stress on cervical structures. 09/30/20 - GOOD PROGRESS STG Duration 4 weeks - 08/26/20 Mcc Goal (LTG) Pt will demonstrate uncued postural correction during functional activities such as lifting for reduced stress on cervical structures and improved ability to participate in work activities . LTG Duration 11/27/20 Two Impairment ROM Short Term Goal (STG) Pt will improve lateral flexion to 20 degrees bilaterally without increase in baseline pain 09/30/20 - SLOW PROGRESS DUE TO PAIN AND INCONSISTENT HEP STG Duration 4 weeks - 08/26/20 Mcc Goal (LTG) Pt will improve cervical rotation to 45 degrees bilaterally or greater for ability to safely operate a motor vehicle. LTG Duration 11/27/20 One Impairment lacks HEP Short Term Goal (STG) Pt will be independent with HEP for support of therapy services provided in clinic. 09/30/20 - SLOW PROGRESS STG Duration 4 weeks - 08/26/20 Mcc Goal (LTG) Pt will perform maintenance HEP for pain management and to demonstrate improved self- efficacy regarding cervical motion LTG Duration 11/27/20 Progress Towards Goals Progress Towards Goals Slow Progress due to Attendance Issues Progress Comments Pt has had to reschedule several visits due to summer travel but is ready to re- commit to once-twice weekly PT appointments. She notes decreased neck pain when regularly attending and practicing HEP. She would benefit from further visits to progress her ROM and decrease pain. Assessment Summary Assessment Taylor requires frequent cueing to relax upper traps but is improving in scapular mechanics and noticing improved neck symptoms with increased reps. Physical Therapy Plan Frequency and Duration Frequency of Treatment 1-2x/week Duration of Treatment 2 months Plan of Care Start Date 09/30/20 Plan of Care End Date 11/27/20 Therapeutic Interventions Therapeutic Interventions Home Exercise Program,Joint Mobilizations,Manual Therapy, Neuromuscular Re-education, Patient/Caregiver Education, Self-Care/Home Management, Sensory Integration,Soft Tissue Mobilization,Taping, Therapeutic Activities, Therapeutic Exercises Modalities Cold Pack/Ice Massage,Electric Stimulation,Hot Packs Next Visit Focus/Plan Next Note Type Treatment Note Next Visit Plan Manual as tolerated, review HEP for independent performance, progress strengthening for rhomboids, lower trap, stretch pecs, re assess HEP performance with new exercises. Plan of Care Dates Plan of Care Start Date 09/30/20 Plan of Care End Date 11/27/20 Electronically Signed by: Mena Akers, PT 09/30/20 7330 Please Sign and Return: I have reviewed this Plan of Care and certify that the skilled therapy services above are required to meet the patient?s needs. Physician Signature Date Printed Name and Credentials Clinical Instructor Signature Printed Name and Credentials
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
--- NOTE | 2020-11-04 11:25 | PT-OP ANOTE ---
Pt called to cancel same-day due to migraine. Next appointment 11/11/20 with this PT. Must complete [employer] paperwork 11/11/20 if pt hoping to continue therapy.
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
== END | disposition home or self-care (01) ==
LOC: PHYS 07-29 10:19
PROVIDERS: Family Provider Internal Medicine; PCP Internal Medicine; Referring Provider Neurological Surgery; Visit Provider Neurological Surgery
DX: M54.12 Radiculopathy, cervical region (principal)
CPT/HCPCS: 97110; 97140; 97161

== ENCOUNTER 2022-04-20 19:22 | Emergency (ER) | payer OTHER, SELFPAY ==
[2022-04-20 19:25] VITALS: BP 170/107; PULSE 82; RESP 14; TEMP 36.7; O2SAT 97; BMI 25.2
--- NOTE | 2022-04-20 19:30 | DI.RAD.S_ITS ---
PROCEDURE: XR CHEST 1V INDICATIONS: chest pain TECHNIQUE: One view of the chest was acquired. COMPARISON: [facility], CR, XR CHEST 2V, 01/27/2021, 11:19. FINDINGS: Surgical changes and devices: None. Lungs and pleura: Lungs are clear. No pleural effusions or pneumothorax. Mediastinum: Mediastinal contours appear normal. Heart size is normal. Bones and chest wall: No suspicious bony lesions. Overlying soft tissues appear unremarkable. IMPRESSION: No acute pulmonary process. Dictated by: Nyla Leung M.D. on 04/20/2022 at 19:43 Approved by: Nyla Leung M.D. on 04/20/2022 at 19:44
[2022-04-20 19:47] LABS: Add Manual Diff / Slide Review NO; Basophils Absolute Auto 100 /uL (0-100); Basophils Percent Auto 1.1 % (0-2); Eosinophils Absolute Auto 100 /uL (0-450); Eosinophils Percent Auto 0.9 % (2-4); Hematocrit 40.6 % (36-46); Hemoglobin 13.8 g/dL (12.0-16.0); Lymphocytes Absolute Auto 2700 /uL (1100-4500); Mean Corpuscular Hemoglobin 34.4 PG (26-34); Mean Corpuscular Volume 101.2 fL (80-100); Monocytes Absolute Auto 400 /uL (0-900); Monocytes Percent Auto 6.7 % (3-14); Neutrophils Absolute Auto 3200 /uL (1500-7000); Neutrophils Percent Auto 49.3 % (50-75); Platelet Count 260 X10^3/uL (150-400); Red Blood Cell Count 4.01 X10^6/uL (4.0-5.2); Red Cell Distribution Width 12.3 % (11.6-14.8); White Blood Cell Count 6.5 X10^3/uL (4.5-11.0)
[2022-04-20 19:50] LABS: Alanine Aminotransferase 27 IU/L (<35); Albumin 5.2 g/dL (3.5-5.0); Albumin Globulin Ratio 1.3 (1.0-2.8); Alkaline Phosphatase 70 U/L (38-126); Aspartate Aminotransferase 44 IU/L (14-36); BUN Creatinine Ratio 9.1 (6-22); Bilirubin Total 0.5 mg/dL (0.2-1.3); Blood Urea Nitrogen 6 mg/dL (7-17); Calcium 9.1 mg/dL (8.4-10.2); Carbon Dioxide 26 mmol/L (22-32); Chloride 94 mmol/L (98-107); Creatine Kinase 75 U/L (30-135); Estimated Glomerular Filt Rate > 60 mL/min (>60); Glucose 92 mg/dL (70-100); HEMOLYSIS 20 (0-50); Lipase 87 U/L (23-300); Potassium 3.4 mmol/L (3.4-5.1); Sodium 133 mmol/L (137-145); Total Protein 9.2 g/dL (6.3-8.2)
[2022-04-20 20:01] LABS: Troponin I < 0.012 ng/mL (0.01-0.034)
[2022-04-20 20:03] LABS: PTT Partial Thromboplastin Tim 30 SECONDS (26-36)
--- NOTE | 2022-04-20 20:06 | ED_ITS ---
HPI - Chest Pain General Chief Complaint: Chest Pain Stated Complaint: CP Time Seen by Provider: 04/20/22 19:36 Source: patient Mode of arrival: EMS Limitations: no limitations History of Present Illness HPI narrative: Patient is a 47-year-old female who has a history of chest pain. She is been evaluated by Cardiology. Has had an echocardiogram. Initially was reported that she has a history of a aortic aneurysm however upon further evaluation discussion with the patient it appears that she does has a dilation of the aorta which was seen on a prior echo. She states that earlier today she had sharp retrosternal chest discomfort. Not worse with palpation or movement. No problems breathing. It has improved. She has had symptoms like this in the past but just a different location. She has been evaluated for symptoms very similar to this in the past. States she was sitting on the couch when they hap pen. She called EMS to bring her in because she stated that they pain that she had today was in slightly different location and more intense than normal. Related Data Home Medications Medication Instructions Recorded Confirmed acetaminophen 325 mg tablet 325 mg PO PRN PRN pain ##0 06/23/16 04/22/21 albuterol sulfate 2.5 mg/3 mL 3 ml INH QIDP PRN ##0 06/23/16 04/22/21 (0.083 %) solution for nebulization omeprazole 20 mg capsule,delayed 40 mg PO QDAY ##0 06/27/16 04/22/21 release docusate sodium 100 mg capsule 200 mg PO QDAYP PRN ##0 12/05/16 04/22/21 levothyroxine 200 mcg tablet 200 mcg PO DAILY ##0 12/05/16 04/22/21 ibuprofen 600 mg tablet 600 mg PO TID 03/29/19 04/22/21 meloxicam 15 mg tablet 15 mg PO DAILY 03/29/19 04/22/21 methylphenidate HCl 10 mg tablet 10 mg PO BID 03/29/19 04/22/21 methylphenidate HCl 54 mg 54 mg PO DAILY 03/29/19 04/22/21 tablet,extended release 24 hr Previous Rx's Medication Instructions Recorded diazepam 5 mg tablet (Valium) 5 mg PO Q12HR PRN muscle spasm #14 04/27/21 tabs hydrocodone 5 mg-acetaminophen 325 1 tab PO Q6H PRN pain #14 tabs 04/27/21 mg tablet Allergies Allergy/AdvReac Type Severity Reaction Status Date / Time grass pollen-perennial rye, Allergy Severe anaphylacti Verified 04/20/22 19:31 standar c [GRASS POLL-PERENNIAL RYE,STD] beclomethasone Allergy Mild anaphylaxis Verified 04/20/22 19:31 [BECLOMETHASONE] montelukast [MONTELUKAST] Allergy Unknown RASH Verified 04/20/22 19:31 Review of Systems Review of Systems ROS Unobtainable: All systems reviewed & are unremarkable except as noted in HPI and below Patient History Medical History Hypothyroidism Surgical History Status post hysterectomy (06/27/16) Status post ovarian cystectomy (06/27/16) Social History Smoking Status: Never smoker Smoking Status: Never smoker alcohol intake frequency: a few times a week Substance Use Type: does not use Exam Initial Vital Signs Initial Vital Signs: Vital Signs Temperature 98.1 F 04/20/22 19:25 Pulse Rate 82 04/20/22 19:25 Respiratory Rate 14 04/20/22 19:25 Blood Pressure 170/107 H 04/20/22 19:25 Pulse Oximetry 97 04/20/22 19:25 Oxygen Delivery Method Room Air 04/20/22 19:25 Const General: cooperative, comfortable and No ill appearing HENMT Head: normal to inspection and normocephalic Chest Chest: normal inspection of the chest Resp Effort & Inspection: normal respiratory effort Auscultation: clear to auscultation bilaterally Cardio Rate: regular rate Rhythm: regular rhythm GI Inspection: normal to inspection and non-distended Palpation: soft Skin General: no rashes or lesions noted Neuro General: patient alert, patient awake and moves all extremities Extrem General: normal to inspection Scores HEART Score Heart Score history: Slightly Suspicious Heart Score EKG: Normal Heart Score Age: 45-64 years old Heart Score risk factors: 1-2 risk factors Heart Score troponin: < or = to normal limit Heart Score Total: 2 Course Orders Ordered: ED Orders 04/20/22 19:30 XR chest 1V Stat EKG-12 Lead Stat 04/20/22 19:33 Complete Blood Count AUTO DIFF Stat Comprehensive Metabolic Panel Stat Lipase Stat Magnesium Stat PTT Partial Thromboplastin Izaiah Stat Prothrombin Time INR Stat Troponin & CK Cardiac Panel Stat Discontinued Medications Aspirin (Aspirin 81 Mg Chew Tab) 324 mg PO NOW ONE Stop: 04/20/22 19:31 Last Admin: 04/20/22 20:35 Dose: Not Given Documented By: CLAYTON Vital Signs Vital signs: Vital Signs - 8 hr 04/20/22 20:35 Pulse Rate 83 Blood Pressure 129/83 Pulse Oximetry 97 Oxygen Delivery Method Room Air MDM - Chest Pain Lab Data Attestation: I reviewed the patient's lab results. 04/20/22 19:33 04/20/22 19:33 Labs: Lab Results 04/20/22 04/20/22 04/20/22 Range/Units 19:33 19:33 19:33 WBC 6.5 (4.5-11.0) X10^3/uL RBC 4.01 (4.0-5.2) X10^6/uL Hgb 13.8 (12.0-16.0) g/dL Hct 40.6 (36-46) % MCV 101.2 H (80-100) fL MCH 34.4 H (26-34) PG MCHC 34.0 (30-36) % RDW 12.3 (11.6-14.8) % Plt Count 260 (150-400) X10^3/uL Neut % (Auto) 49.3 L (50-75) % Lymph % (Auto) 42.0 H (25-40) % Mcintosh % (Auto) 6.7 (3-14) % Eos % (Auto) 0.9 L (2-4) % Baso % (Auto) 1.1 (0-2) % Neut # (Auto) 3200 (9345-2640) /uL Lymph # (Auto) 2700 (7078-6900) /uL Mcintosh # (Auto) 400 (0-900) /uL Eos # (Auto) 100 (0-450) /uL Baso # (Auto) 100 (0-100) /uL PT 12.0 (10.1-12.7) SECONDS INR 1.0 (0.9-1.3) APTT 30 (26-36) SECONDS Sodium 133 L (137-145) mmol/L Potassium 3.4 (3.4-5.1) mmol/L Chloride 94 L (98-107) mmol/L Carbon Dioxide 26 (22-32) mmol/L BUN 6 L (7-17) mg/dL Creatinine 0.66 (0.52-1.04) mg/dL Estimated GFR > 60 (>60) mL/min BUN/Creatinine Ratio 9.1 (6-22) Glucose 92 (70-100) mg/dL Calcium 9.1 (8.4-10.2) mg/dL Magnesium 2.0 (1.6-2.3) mg/dL Total Bilirubin 0.5 (0.2-1.3) mg/dL AST 44 H (14-36) IU/L ALT 27 (<35) IU/L Alkaline Phosphatase 70 (38-126) U/L Total Creatine Kinase 75 (30-135) U/L CK-MB (CK-2) TNP CK-MB (CK-2) Rel Index TNP Troponin I < 0.012 (0.01-0.034) ng/mL Total Protein 9.2 H (6.3-8.2) g/dL Albumin 5.2 H (3.5-5.0) g/dL Globulin 4.0 (1.7-4.1) g/dL Albumin/Globulin Ratio 1.3 (1.0-2.8) Lipase 87 (23-300) U/L Imaging Data Chest x-ray: Radiologist's Impression: PROCEDURE:? XR CHEST 1V ? INDICATIONS:? chest pain ? TECHNIQUE:? One view of the chest was acquired.? ? COMPARISON:? [facility], , XR CHEST 2V, 01/27/2021, 11:19. ? FINDINGS:? ? Surgical changes and devices:? None.? ? Lungs and pleura:? Lungs are clear.? No pleural effusions or pneumothorax.? ? Mediastinum:? Mediastinal contours appear normal.? Heart size is normal.? ? Bones and chest wall:? No suspicious bony lesions.? Overlying soft tissues appear unremarkable.? ? IMPRESSION:? No acute pulmonary process. ECG Data Attestation: I personally reviewed and interpreted this ECG as follows: Interpretation: Sinus rhythm Ventricular rate is 77 Normal axis Normal QRS No ST T wave changes MDM Narrative Medical decision making narrative: Patient has a low risk heart score. EKG and chest x-ray is unremarkable. Labs are unremarkable. Troponins negative. Given her presentation I have low suspicion for ACS. Low suspicion for PE. Checks the x-ray shows no acute path ology. Will hold on further workup for now. Patient is safe for discharge home. She was given return precautions and follow-up instructions. She expressed understanding and agreement. Discharge Plan Departure Patient Disposition: Home Clinical Impression: Atypical chest pain Instructions: DI for Atypical Chest Pain Activity Restrictions/Additional Instructions: I recommend that you continue to take all of your medications as directed. Contact your primary doctor for a follow-up. Return to the emergency department for any new or worsening symptoms. Prescriptions: No Action albuterol sulfate 2.5 MG/3 ML solution for nebulization 3 ml INH QIDP PRNQty: 0 acetaminophen 325 MG tablet 325 mg PO PRN PRN (Reason: pain) Qty: 0 omeprazole 20 MG capsule,delayed release(DR/EC) 40 mg PO QDAY Qty: 0 levothyroxine 200 MCG tablet 200 mcg PO DAILY Qty: 0 docusate sodium 100 MG capsule 200 mg PO QDAYP PRNQty: 0 methylphenidate HCl 10 mg tablet 10 mg PO BID meloxicam 15 mg tablet 15 mg PO DAILY methylphenidate HCl 54 mg tablet extended release 24hr 54 mg PO DAILY ibuprofen 600 mg tablet 600 mg PO TID hydrocodone-acetaminophen 5-325 mg tablet 1 tab PO Q6H PRN (Reason: pain) Qty: 14 0RF diazepam [Valium] 5 mg tablet 5 mg PO Q12HR PRN (Reason: muscle spasm) Qty: 14 0RF Referrals: Segundo Winchester MD [Primary Care Provider] - Stand Alone Forms: Patient Portal/API
[2022-04-20 20:35] VITALS: BP 129/83; PULSE 83; O2SAT 97
== END 2022-04-20 20:35 | disposition home or self-care (01) ==
PROVIDERS: Emergency Provider Emergency Medicine; Family Provider Internal Medicine; PCP Internal Medicine
DX: R07.89 Other chest pain (principal)
CPT/HCPCS: 71045; 80053; 82550; 83690; 83735; 84484; 85025; 85610; 85730; 93005; 99283; 99284

== ENCOUNTER 2022-07-26 19:06 | Emergency (ER) | payer OTHER, SELFPAY ==
[2022-07-26] VITALS (8 sets, daily range): BP systolic 126–153; BP diastolic 74–95; PULSE 80–95; RESP 16–22; TEMP 36.6; O2SAT 95–100; BMI 26.7
--- NOTE | 2022-07-26 19:24 | ED_ITS ---
HPI - General Adult General Chief complaint: Allergic Reaction Stated complaint: Allergic Reaction, Epi was given Time Seen by Provider: 07/26/22 19:21 Source: patient Mode of arrival: EMS Limitations: no limitations History of Present Illness HPI narrative: Patient is a 47-year-old female who arrives by EMS for evaluation after having an allergic reaction. 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 Patient was outside playing in the grass with her dog when She started to get a rash on her body and also tingling around her mouth. She did self administer an EpiPen that she had at home. Patient has not had any vomiting. No problems breathing. Related Data Home Medications Medication Instructions Recorded Confirmed acetaminophen 325 mg tablet 325 mg PO PRN PRN pain ##0 06/23/16 04/22/21 albuterol sulfate 2.5 mg/3 mL 3 ml INH QIDP PRN ##0 06/23/16 04/22/21 (0.083 %) solution for nebulization omeprazole 20 mg capsule,delayed 40 mg PO QDAY ##0 06/27/16 04/22/21 release docusate sodium 100 mg capsule 200 mg PO QDAYP PRN ##0 12/05/16 04/22/21 levothyroxine 200 mcg tablet 200 mcg PO DAILY ##0 12/05/16 04/22/21 ibuprofen 600 mg tablet 600 mg PO TID 03/29/19 04/22/21 meloxicam 15 mg tablet 15 mg PO DAILY 03/29/19 04/22/21 methylphenidate HCl 10 mg tablet 10 mg PO BID 03/29/19 04/22/21 methylphenidate HCl 54 mg 54 mg PO DAILY 03/29/19 04/22/21 tablet,extended release 24 hr Previous Rx's Medication Instructions Recorded diazepam 5 mg tablet (Valium) 5 mg PO Q12HR PRN muscle spasm #14 04/27/21 tabs hydrocodone 5 mg-acetaminophen 325 1 tab PO Q6H PRN pain #14 tabs 04/27/21 mg tablet epinephrine 0.3 mg/0.3 mL 0.3 mg (0.3 mL) IM Q5-15M PRN 07/26/22 injection, auto-injector (EpiPen anaphylaxis #2 ea 2-Brien) Allergies Allergy/AdvReac Type Severity Reaction Status Date / Time grass pollen-perennial rye, Allergy Severe anaphylacti Verified 07/26/22 19:26 standar c [GRASS POLL-PERENNIAL RYE,STD] beclomethasone Allergy Mild anaphylaxis Verified 07/26/22 19:26 [BECLOMETHASONE] montelukast [MONTELUKAST] Allergy Unknown RASH Verified 07/26/22 19:26 Review of Systems Constitutional Constitutional: Reports system reviewed and no additional complaints, except as documented Respiratory Respiratory: Reports system reviewed and no additional complaints, except as documented Gastrointestinal Gastrointestinal: Reports system reviewed and no additional complaints, except as documented Genitourinary Genitourinary: Reports system reviewed and no additional complaints, except as documented Integumentary/Breasts Skin/Breast: Reports system reviewed and no additional complaints, except as documented Neurologic Neurologic: Reports system reviewed and no additional complaints, except as documented Allergic/Immunologic Allergic/Immunologic: Reports system reviewed and no additional complaints, except as documented Patient History Medical History Hypothyroidism Surgical History Status post hysterectomy (06/27/16) Status post ovarian cystectomy (06/27/16) Social History Smoking Status: Never smoker Smoking Status: Never smoker alcohol intake frequency: a few times a week Substance Use Type: does not use Exam Initial Vital Signs Initial Vital Signs: Vital Signs Temperature 97.8 F 07/26/22 19:00 Pulse Rate 92 H 07/26/22 19:00 Respiratory Rate 16 07/26/22 19:00 Blood Pressure 153/95 H 07/26/22 19:00 Pulse Oximetry 99 07/26/22 19:00 Oxygen Delivery Method Room Air 07/26/22 19:00 Const General: cooperative, comfortable and No ill appearing HENMT Head: normal to inspection and normocephalic Face and sinus: normal facial exam Mouth: moist mucous membranes Resp Effort & Inspection: normal respiratory effort Auscultation: clear to auscultation bilaterally Cardio Rate: regular rate Rhythm: regular rhythm Skin Other: Patient does have urticaria on her upper chest in the left side of her neck. Neuro General: patient alert, patient awake, patient oriented x3 and moves all extremities Extrem General: normal to inspection and capillary refill normal Course Orders Ordered: Discontinued Medications Diphenhydramine HCl (Diphenhydramine 50 Mg/Ml Vial) 25 mg IV NOW ONE Stop: 07/26/22 19:25 Last Admin: 07/26/22 19:38 Dose: 25 mg Documented By: IGNACIO Famotidine (Famotidine 20 Mg/2 Ml Vial) 20 mg IV NOW CLAUDIA Last Admin: 07/26/22 19:38 Dose: 20 mg Documented By: IGNACIO Sodium Chloride (Normal Saline 0.9%) 1,000 mls @ 1,000 mls/hr IV BOLUS ONE Stop: 07/26/22 20:23 Last Infusion: 07/26/22 20:52 Dose: 0 mls/hr Documented By: Admin: 07/26/22 19:37 Dose: 1,000 mls/hr Documented By: IGNACIO Methylprednisolone (Methylprednisolone 125 Mg/2 Ml Vial) 125 mg IV NOW ONE Stop: 07/26/22 19:25 Last Admin: 07/26/22 19:38 Dose: 125 mg Documented By: IGNACIO Vital Signs Vital signs: Vital Signs - 8 hr 07/26/22 20:32 07/26/22 20:32 07/26/22 21:00 Pulse Rate 80 Blood Pressure 143/90 H 133/85 Pulse Oximetry 99 07/26/22 21:00 07/26/22 21:30 07/26/22 21:30 Pulse Rate 89 95 H Blood Pressure 134/85 Pulse Oximetry 99 95 Medical Decision Making MDM Narrative Medical decision making narrative: Patient did have rash on her upper chest and left side of her neck upon arrival. She was not having any respiratory distress. She did receive epinephrine prior to arrival that was self administered. She was given further medications here in the ER and observed for period of time. She had almost complete resolution of the urticaria. No worsening of her symptoms. Patient states she feels comfortable going home. She states she already has a refill of her EpiPen at home. Will discharge patient home with strict return precautions. She expressed understanding and agreement. Discharge Plan Departure Patient Disposition: Home Clinical Impression: Allergic reaction Instructions: Anaphylaxis Activity Restrictions/Additional Instructions: I do recommend that you contact your primary care doctor for a follow-up. 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 Return to the emergency department for new or worsening symptoms. Prescriptions: New epinephrine [EpiPen 2-Brien] 0.3 mg/0.3 mL auto-injector 0.3 mg IM Q5-15M PRN (Reason: anaphylaxis) Qty: 2 0RF Rx Instructions: do not exceed 3 doses per episode No Action albuterol sulfate 2.5 MG/3 ML solution for nebulization 3 ml INH QIDP PRNQty: 0 acetaminophen 325 MG tablet 325 mg PO PRN PRN (Reason: pain) Qty: 0 omeprazole 20 MG capsule,delayed release(DR/EC) 40 mg PO QDAY Qty: 0 levothyroxine 200 MCG tablet 200 mcg PO DAILY Qty: 0 docusate sodium 100 MG capsule 200 mg PO QDAYP PRNQty: 0 methylphenidate HCl 10 mg tablet 10 mg PO BID meloxicam 15 mg tablet 15 mg PO DAILY methylphenidate HCl 54 mg tablet extended release 24hr 54 mg PO DAILY ibuprofen 600 mg tablet 600 mg PO TID hydrocodone-acetaminophen 5-325 mg tablet 1 tab PO Q6H PRN (Reason: pain) Qty: 14 0RF diazepam [Valium] 5 mg tablet 5 mg PO Q12HR PRN (Reason: muscle spasm) Qty: 14 0RF Referrals: Segundo Winchester MD [Primary Care Provider] - Stand Alone Forms: Patient Portal/API
[2022-07-26] MEDS: SODIUM CHLORIDE 0.9% 1,000 ML 1000 ML IV (19:37)
[2022-07-26] MEDS: diphenhydrAMINE 50 MG/ML VIAL 25 MG IV (19:38)
[2022-07-26] MEDS: methylPREDNISolone 125 MG/2 ML VIAL IV (19:38)
[2022-07-26] MEDS: FAMOTIDINE 20 MG/2 ML VIAL IV (19:38)
== END 2022-07-26 22:07 | disposition home or self-care (01) ==
PROVIDERS: Emergency Provider Emergency Medicine; Family Provider Internal Medicine; PCP Internal Medicine
DX: R21 Rash and other nonspecific skin eruption (principal); T78.40XA Allergy, unspecified, initial encounter
CPT/HCPCS: 36415; 96361; 96374; 96375; 99284; J1200; J2930

== ENCOUNTER 2022-10-28 15:59 | Emergency (ER) | payer OTHER, SELFPAY ==
[2022-10-28 16:08] VITALS: BP 174/113; PULSE 94; RESP 18; TEMP 36.5; O2SAT 98; BMI 25.2
--- NOTE | 2022-10-28 16:58 | PC.NURSE ---
Pt states that she stopped taking her thyroid medication a few weeks while on vacation with her family. Pt reported that today she felt like she was having palpitations and fatigued while out having a couple drinks with a friend. Denies cp or sob at this time.
--- NOTE | 2022-10-28 17:10 | ED.ARRPALP ---
HPI - Arrhythmia/Palpitations General Chief Complaint: Arrhythmia/Palpitations Stated Complaint: Off meds, No thyroid Time Seen by Provider: 10/28/22 16:49 Source: patient Mode of arrival: Ambulatory Limitations: no limitations History of Present Illness HPI narrative: Patient has a history of hypothyroid. She is been off of her Synthroid for at least the past 3 months. She stated that it was because of issues at home. She does have this prescription at home. She stated that she is been feeling very fatigued and tired. Also having some ?head fog? all the symptoms are consistent with hypothyroidism. She started back on her medications 3 days ago. She contacted her business systems developer who recommended she come to the emergency department for IV levothyroxine. Related Data Home Medications Medication Instructions Recorded Confirmed acetaminophen 325 mg tablet 325 mg PO PRN PRN pain ##0 06/23/16 04/22/21 albuterol sulfate 2.5 mg/3 mL 3 ml INH QIDP PRN ##0 06/23/16 04/22/21 (0.083 %) solution for nebulization omeprazole 20 mg capsule,delayed 40 mg PO QDAY ##0 06/27/16 04/22/21 release docusate sodium 100 mg capsule 200 mg PO QDAYP PRN ##0 12/05/16 04/22/21 levothyroxine 200 mcg tablet 200 mcg PO DAILY ##0 12/05/16 04/22/21 ibuprofen 600 mg tablet 600 mg PO TID 03/29/19 04/22/21 meloxicam 15 mg tablet 15 mg PO DAILY 03/29/19 04/22/21 methylphenidate HCl 10 mg tablet 10 mg PO BID 03/29/19 04/22/21 methylphenidate HCl 54 mg 54 mg PO DAILY 03/29/19 04/22/21 tablet,extended release 24 hr Previous Rx's Medication Instructions Recorded diazepam 5 mg tablet (Valium) 5 mg PO Q12HR PRN muscle spasm #14 04/27/21 tabs hydrocodone 5 mg-acetaminophen 325 1 tab PO Q6H PRN pain #14 tabs 04/27/21 mg tablet epinephrine 0.3 mg/0.3 mL 0.3 mg (0.3 mL) IM Q5-15M PRN 07/26/22 injection, auto-injector (EpiPen anaphylaxis #2 ea 2-Brien) Allergies Allergy/AdvReac Type Severity Reaction Status Date / Time grass pollen-perennial rye, Allergy Severe anaphylacti Verified 10/28/22 16:13 standar c [GRASS POLL-PERENNIAL RYE,STD] beclomethasone Allergy Mild anaphylaxis Verified 10/28/22 16:13 [BECLOMETHASONE] montelukast [MONTELUKAST] Allergy Unknown RASH Verified 10/28/22 16:13 Review of Systems Constitutional Constitutional: Reports system reviewed and no additional complaints, except as documented Cardiovascular Cardiovascular: Reports system reviewed and no additional complaints, except as documented Respiratory Respiratory: Reports system reviewed and no additional complaints, except as documented Gastrointestinal Gastrointestinal: Reports system reviewed and no additional complaints, except as documented Integumentary/Breasts Skin/Breast: Reports system reviewed and no additional complaints, except as documented Endocrine Endocrine: Reports system reviewed and no additional complaints, except as documented Hematologic/Lymphatic On Anticoagulants: No Patient History Medical History (Updated 10/28/22 @ 18:22 by James Timmons DO) Hypothyroidism Surgical History Status post hysterectomy (06/27/16) Status post ovarian cystectomy (06/27/16) Social History Smoking Status: Never smoker Smoking Status: Never smoker alcohol intake frequency: 3 or more drinks per day Alcohol type: beer Substance Use Type: does not use Exam Initial Vital Signs Initial Vital Signs: Vital Signs Temperature 97.7 F 10/28/22 16:08 Pulse Rate 94 H 10/28/22 16:08 Respiratory Rate 18 10/28/22 16:08 Blood Pressure 174/113 H 10/28/22 16:08 Pulse Oximetry 98 10/28/22 16:08 Oxygen Delivery Method Room Air 10/28/22 16:08 Const General: cooperative, healthy appearing, comfortable and No ill appearing HENHI Head: normal to inspection and normocephalic Resp Effort & Inspection: normal respiratory effort Auscultation: clear to auscultation bilaterally Cardio Rate: regular rate Rhythm: regular rhythm Skin General: no rashes or lesions noted Neuro General: patient alert, patient awake, patient oriented x3 and moves all extremities Extrem General: normal to inspection and capillary refill normal Scores GCS [place] coma scale eye opening: Spontaneous [place] coma scale verbal response: Orientated [place] coma scale motor response: Obey commands [place] coma scale total score: 15 Course Orders Ordered: ED Orders 10/28/22 16:23 EKG-12 Lead Stat 10/28/22 17:18 Complete Blood Count AUTO DIFF Stat Comprehensive Metabolic Panel Stat Free T3, Triiodothyronine Free Stat Free T4, Direct Thyroxine Stat Thyroid Stimulating Hormone Stat Discontinued Medications Levothyroxine Sodium (Levothyroxine Inj 100 Mcg/5 Ml Vial) 100 mcg IV NOW ONE Stop: 10/28/22 17:12 Last Admin: 10/28/22 17:35 Dose: 100 mcg Documented By: CTS Vital Signs Vital signs: Vital Signs - 8 hr 10/28/22 16:08 Temperature 97.7 F Pulse Rate 94 H Respiratory Rate 18 Blood Pressure 174/113 H Pulse Oximetry 98 Oxygen Delivery Method Room Air MDM - Arrhythmia/Palpitations Lab Data Attestation: I reviewed the patient's lab results. 10/28/22 17:18 10/28/22 17:18 Labs: Lab Results 10/28/22 10/28/22 10/28/22 Range/Units 17:18 17:18 17:18 WBC 3.9 L (4.5-11.0) X10^3/uL RBC 3.71 L (4.0-5.2) X10^6/uL Hgb 12.9 (12.0-16.0) g/dL Hct 37.3 (36-46) % MCV 100.5 H (80-100) fL MCH 34.7 H (26-34) PG MCHC 34.5 (30-36) % RDW 13.0 (11.6-14.8) % Plt Count 225 (150-400) X10^3/uL Neut % (Auto) 51.9 (50-75) % Lymph % (Auto) 36.5 (25-40) % [place] % (Auto) 9.9 (3-14) % Eos % (Auto) 0.8 L (2-4) % Baso % (Auto) 0.9 (0-2) % Neut # (Auto) 2000 (7948-6840) /uL Lymph # (Auto) 1400 (1417-2812) /uL [place] # (Auto) 400 (0-900) /uL Eos # (Auto) 0 (0-450) /uL Baso # (Auto) 0 (0-100) /uL Sodium 133 L (137-145) mmol/L Potassium 3.8 (3.4-5.1) mmol/L Chloride 97 L (98-107) mmol/L Carbon Dioxide 24 (22-32) mmol/L BUN 5 L (7-17) mg/dL Creatinine 0.62 (0.52-1.04) mg/dL Estimated GFR > 60 (>60) mL/min BUN/Creatinine Ratio 8.1 (6-22) Glucose 88 (70-100) mg/dL Calcium 9.2 (8.4-10.2) mg/dL Total Bilirubin 0.3 (0.2-1.3) mg/dL AST 33 (14-36) IU/L ALT 22 (<35) IU/L Alkaline Phosphatase 52 (38-126) U/L Total Protein 7.7 (6.3-8.2) g/dL Albumin 4.4 (3.5-5.0) g/dL Globulin 3.3 (1.7-4.1) g/dL Albumin/Globulin Ratio 1.3 (1.0-2.8) TSH (0.47-4.68) uIU/mL Free T4 1.13 (0.78-2.19) ng/dL Free T3 3.32 (2.77-5.27) pg/mL 10/28/22 Range/Units 17:18 WBC (4.5-11.0) X10^3/uL RBC (4.0-5.2) X10^6/uL Hgb (12.0-16.0) g/dL Hct (36-46) % MCV (80-100) fL MCH (26-34) PG MCHC (30-36) % RDW (11.6-14.8) % Plt Count (150-400) X10^3/uL Neut % (Auto) (50-75) % Lymph % (Auto) (25-40) % [place] % (Auto) (3-14) % Eos % (Auto) (2-4) % Baso % (Auto) (0-2) % Neut # (Auto) (2935-4916) /uL Lymph # (Auto) (4954-2832) /uL [place] # (Auto) (0-900) /uL Eos # (Auto) (0-450) /uL Baso # (Auto) (0-100) /uL Sodium (137-145) mmol/L Potassium (3.4-5.1) mmol/L Chloride (98-107) mmol/L Carbon Dioxide (22-32) mmol/L BUN (7-17) mg/dL Creatinine (0.52-1.04) mg/dL Estimated GFR (>60) mL/min BUN/Creatinine Ratio (6-22) Glucose (70-100) mg/dL Calcium (8.4-10.2) mg/dL Total Bilirubin (0.2-1.3) mg/dL AST (14-36) IU/L ALT (<35) IU/L Alkaline Phosphatase (38-126) U/L Total Protein (6.3-8.2) g/dL Albumin (3.5-5.0) g/dL Globulin (1.7-4.1) g/dL Albumin/Globulin Ratio (1.0-2.8) TSH 14.1 H (0.47-4.68) uIU/mL Free T4 (0.78-2.19) ng/dL Free T3 (2.77-5.27) pg/mL ECG Data Attestation: I personally reviewed and interpreted this ECG as follows: Interpretation: Sinus rhythm Ventricular rate is 76 Normal axis Normal QRS No ST T wave changes MDM Narrative Medical decision making narrative: Patient is tolerating oral intake. She is not altered. Patient is not in myxedema coma. She is not hypotensive. TSH is elevated but her free T3 and free T4 are unremarkable. Her electrolytes are unremarkable. No indication for admission to the hospital. I suspect the patient's symptoms will improve with further oral dosing of her medication. She was given a dose of IV medication here in the emergency department because this was requested by her business systems developer. Patient was given return precautions. Discharge Plan Departure Patient Disposition: Home Clinical Impression: Hypothyroid Instructions: Hypothyroidism Activity Restrictions/Additional Instructions: It is important that you take all of your medications as directed specifically your Synthroid. Your symptoms should improve over the next several days/weeks being on this medication. I recommend that you contact your primary doctor for follow-up and also your business systems developer. Prescriptions: No Action albuterol sulfate 2.5 MG/3 ML solution for nebulization 3 ml INH QIDP PRNQty: 0 acetaminophen 325 MG tablet 325 mg PO PRN PRN (Reason: pain) Qty: 0 omeprazole 20 MG capsule,delayed release(DR/EC) 40 mg PO QDAY Qty: 0 levothyroxine 200 MCG tablet 200 mcg PO DAILY Qty: 0 docusate sodium 100 MG capsule 200 mg PO QDAYP PRNQty: 0 methylphenidate HCl 10 mg tablet 10 mg PO BID meloxicam 15 mg tablet 15 mg PO DAILY methylphenidate HCl 54 mg tablet extended release 24hr 54 mg PO DAILY ibuprofen 600 mg tablet 600 mg PO TID hydrocodone-acetaminophen 5-325 mg tablet 1 tab PO Q6H PRN (Reason: pain) Qty: 14 0RF diazepam [Valium] 5 mg tablet 5 mg PO Q12HR PRN (Reason: muscle spasm) Qty: 14 0RF epinephrine [EpiPen 2-Brien] 0.3 mg/0.3 mL auto-injector 0.3 mg IM Q5-15M PRN (Reason: anaphylaxis) Qty: 2 0RF Rx Instructions: do not exceed 3 doses per episode Referrals: Segundo Winchester MD [Primary Care Provider] - Stand Alone Forms: Patient Portal/API
[2022-10-28 17:25] LABS: Add Manual Diff / Slide Review NO; Basophils Absolute Auto 0 /uL (0-100); Basophils Percent Auto 0.9 % (0-2); Eosinophils Absolute Auto 0 /uL (0-450); Eosinophils Percent Auto 0.8 % (2-4); Hematocrit 37.3 % (36-46); Hemoglobin 12.9 g/dL (12.0-16.0); Lymphocytes Absolute Auto 1400 /uL (1100-4500); Lymphocytes Percent Auto 36.5 % (25-40); Mean Corpuscular HGB Conc 34.5 % (30-36); Mean Corpuscular Hemoglobin 34.7 PG (26-34); Mean Corpuscular Volume 100.5 fL (80-100); Monocytes Absolute Auto 400 /uL (0-900); Monocytes Percent Auto 9.9 % (3-14); Neutrophils Absolute Auto 2000 /uL (1500-7000); Neutrophils Percent Auto 51.9 % (50-75); Platelet Count 225 X10^3/uL (150-400); Red Blood Cell Count 3.71 X10^6/uL (4.0-5.2); White Blood Cell Count 3.9 X10^3/uL (4.5-11.0)
[2022-10-28] MEDS: LEVOTHYROXINE INJ 100 MCG/5 ML VIAL IV (17:35)
[2022-10-28 17:37] LABS: Alanine Aminotransferase 22 IU/L (<35); Albumin 4.4 g/dL (3.5-5.0); Albumin Globulin Ratio 1.3 (1.0-2.8); Alkaline Phosphatase 52 U/L (38-126); Aspartate Aminotransferase 33 IU/L (14-36); BUN Creatinine Ratio 8.1 (6-22); Bilirubin Total 0.3 mg/dL (0.2-1.3); Blood Urea Nitrogen 5 mg/dL (7-17); Calcium 9.2 mg/dL (8.4-10.2); Carbon Dioxide 24 mmol/L (22-32); Chloride 97 mmol/L (98-107); Estimated Glomerular Filt Rate > 60 mL/min (>60); Globulin 3.3 g/dL (1.7-4.1); Glucose 88 mg/dL (70-100); HEMOLYSIS < 15 (0-50); Potassium 3.8 mmol/L (3.4-5.1); Sodium 133 mmol/L (137-145); Total Protein 7.7 g/dL (6.3-8.2)
[2022-10-28 18:02] LABS: Free T3, Triiodothyronine Free 3.32 pg/mL (2.77-5.27); Free T4, Direct Thyroxine 1.13 ng/dL (0.78-2.19)
[2022-10-28 18:08] LABS: Thyroid Stimulating Hormone 14.1 uIU/mL (0.47-4.68)
[2022-10-28 18:21] VITALS: PULSE 80; RESP 21; O2SAT 99
[2022-10-28 18:30] VITALS: PULSE 80; RESP 18; O2SAT 99
[2022-10-28 18:36] VITALS: BP 156/105; PULSE 87; RESP 19; O2SAT 99
== END 2022-10-28 18:36 | disposition home or self-care (01) ==
PROVIDERS: Emergency Provider Emergency Medicine; Family Provider Internal Medicine; PCP Internal Medicine
DX: E03.9 Hypothyroidism, unspecified (principal); R07.9 Chest pain, unspecified
CPT/HCPCS: 36415; 80053; 84439; 84443; 84481; 85025; 93005; 93010; 96374; 99284

== ENCOUNTER → 2022-11-25 13:01 | Outpatient (CLI) | payer OTHER, SELFPAY ==
--- NOTE | 2022-11-25 | DI.RAD.S_ITS ---
PROCEDURE: XR CHEST 2V INDICATIONS: LATENT TB TECHNIQUE: 2 views of the chest were acquired. COMPARISON: [facility], , XR CHEST 1V, 04/20/2022, 19:26. FINDINGS: Surgical changes and devices: None. Lungs and pleura: Lungs are clear. No pleural effusions or pneumothorax. Mediastinum: Mediastinal contours are normal. Heart size is normal. Bones and chest wall: No suspicious bony abnormalities. Soft tissues appear unremarkable. IMPRESSION: Unremarkable two view chest x-ray Approved by: Matthew Reyes M.D. on 11/25/2022 at 16:08
[2022-11-25 15:29] LABS: Alanine Aminotransferase 42 IU/L (<35); Albumin 4.2 g/dL (3.5-5.0); Albumin Globulin Ratio 1.2 (1.0-2.8); Alkaline Phosphatase 45 U/L (38-126); Aspartate Aminotransferase 35 IU/L (14-36); Bilirubin Unconjugated 0.1 mg/dL (0.0-1.1); Globulin 3.5 g/dL (1.7-4.1); HEMOLYSIS 26 (0-50); Total Protein 7.7 g/dL (6.3-8.2)
[2022-11-25 15:43] LABS: Bilirubin Total < 0.1 mg/dL (0.2-1.3)
[2022-11-25 15:49] LABS: Free T4, Direct Thyroxine 1.09 ng/dL (0.78-2.19)
[2022-11-25 16:03] LABS: Thyroid Stimulating Hormone 2.09 uIU/mL (0.47-4.68)
== END ==
PROVIDERS: Family Provider Internal Medicine; PCP Internal Medicine; Referring Provider Internal Medicine Infectious Disease; Visit Provider Internal Medicine Infectious Disease
DX: Z22.7 Latent tuberculosis (principal); Z85.850 Personal history of malignant neoplasm of thyroid
CPT/HCPCS: 71046; 80076; 84439; 84443

== ENCOUNTER → 2023-05-26 08:50 | Outpatient (CLI) | payer OTHER, SELFPAY ==
[2023-05-26 10:10] LABS: Add Manual Diff / Slide Review NO; Basophils Absolute Auto 0 /uL (0-100); Basophils Percent Auto 0.6 % (0-2); Eosinophils Absolute Auto 100 /uL (0-450); Eosinophils Percent Auto 2.3 % (2-4); Hematocrit 38.6 % (36-46); Hemoglobin 12.9 g/dL (12.0-16.0); Lymphocytes Absolute Auto 1600 /uL (1100-4500); Lymphocytes Percent Auto 33.4 % (25-40); Mean Corpuscular HGB Conc 33.4 % (30-36); Mean Corpuscular Hemoglobin 32.5 PG (26-34); Mean Corpuscular Volume 97.3 fL (80-100); Monocytes Absolute Auto 600 /uL (0-900); Monocytes Percent Auto 12.2 % (3-14); Neutrophils Absolute Auto 2400 /uL (1500-7000); Neutrophils Percent Auto 51.5 % (50-75); Platelet Count 268 X10^3/uL (150-400); Red Blood Cell Count 3.97 X10^6/uL (4.0-5.2); White Blood Cell Count 4.7 X10^3/uL (4.5-11.0)
[2023-05-26 10:40] LABS: Alanine Aminotransferase 15 IU/L (<35); Albumin 4.3 g/dL (3.5-5.0); Albumin Globulin Ratio 1.2 (1.0-2.8); Alkaline Phosphatase 59 U/L (38-126); Aspartate Aminotransferase 28 IU/L (14-36); BUN Creatinine Ratio 16.4 (6-22); Bilirubin Total 0.8 mg/dL (0.2-1.3); Blood Urea Nitrogen 12 mg/dL (7-17); C-Reactive Protein Quant < 0.5 mg/dL (<1.0); Calcium 8.9 mg/dL (8.4-10.2); Carbon Dioxide 26 mmol/L (22-32); Chloride 101 mmol/L (98-107); Estimated Glomerular Filt Rate > 60 mL/min (>60); Globulin 3.5 g/dL (1.7-4.1); Glucose 90 mg/dL (70-100); HEMOLYSIS < 15 (0-50); Potassium 4.6 mmol/L (3.4-5.1); Sodium 135 mmol/L (137-145); Total Protein 7.8 g/dL (6.3-8.2)
[2023-05-26 11:24] LABS: Erythrocyte Sedimentation Rate 3 MM/HR (0-20)
== END ==
PROVIDERS: Family Provider Internal Medicine; PCP Physician Assistant; Referring Provider Internal Medicine; Visit Provider Internal Medicine
DX: L40.50 Arthropathic psoriasis, unspecified (principal); Z79.899 Other long term (current) drug therapy
CPT/HCPCS: 36415; 80053; 85025; 85651; 86140

== ENCOUNTER 2024-04-04 05:11 | Emergency (ER) | payer OTHER, SELFPAY ==
[2024-04-04] VITALS (11 sets, daily range): BP systolic 112–136; BP diastolic 73–84; PULSE 79–98; RESP 16; TEMP 37.2; O2SAT 95–100; BMI 25.2
--- NOTE | 2024-04-04 05:22 | PC.NURSE ---
Patient woke up this morning choking on blood tinged mucous. Throat felt like it was getting tighter. Patient administered her epipen which did help
--- NOTE | 2024-04-04 05:54 | PC.NURSE ---
Patient with no difficulty breathing at this time.
--- NOTE | 2024-04-04 05:55 | ED_ITS ---
HPI - Allergic Reaction <Agusto Guerra MD - Last Filed: 04/04/24 16:11> General Chief complaint: Allergic Reaction Stated complaint: throat closing adminstered epi pen Time Seen by Provider: 04/04/24 05:52 Source: patient and EMS Mode of arrival: EMS History of Present Illness HPI narrative: 49-year-old female with history of Ionia's disease, remote thyroid cancer surgery, GE reflux, prior anaphylactoid reactions, awoke this morning with sensation of throat tightening, used her EpiPen, no swelling of lips or tongue, no shortness of breath or wheezing, but subsequently coughed up or expectorated some bright red blood. No recent injury or trauma. No associated shortness of breath. No recent sore throat. No history of known luncg or throat cancers. No known history of tuberculosis. History of anaphylactoid reactions, she had EpiPen supply in her home. Also has history of gastroesophageal reflux for which she has been prescribed omeprazole. No blood thinner medications. Related Data Home Medications Medication Instructions Recorded Confirmed acetaminophen 325 mg tablet 325 mg PO PRN PRN pain ##0 06/23/16 04/22/21 albuterol sulfate 2.5 mg/3 mL 3 ml INH QIDP PRN ##0 06/23/16 04/22/21 (0.083 %) solution for nebulization omeprazole 20 mg capsule,delayed 40 mg PO QDAY ##0 06/27/16 04/22/21 release docusate sodium 100 mg capsule 200 mg PO QDAYP PRN ##0 12/05/16 04/22/21 levothyroxine 200 mcg tablet 200 mcg PO DAILY ##0 12/05/16 04/22/21 ibuprofen 600 mg tablet 600 mg PO TID 03/29/19 04/22/21 meloxicam 15 mg tablet 15 mg PO DAILY 03/29/19 04/22/21 methylphenidate HCl 10 mg tablet 10 mg PO BID 03/29/19 04/22/21 methylphenidate HCl 54 mg 54 mg PO DAILY 03/29/19 04/22/21 tablet,extended release 24 hr Previous Rx's Medication Instructions Recorded diazepam 5 mg tablet (Valium) 5 mg PO Q12HR PRN muscle spasm #14 04/27/21 tabs hydrocodone 5 mg-acetaminophen 325 1 tab PO Q6H PRN pain #14 tabs 04/27/21 mg tablet epinephrine 0.3 mg/0.3 mL 0.3 mg (0.3 mL) IM Q5-15M PRN 07/26/22 injection, auto-injector (EpiPen anaphylaxis #2 ea 2-Brien) epinephrine 0.3 mg/0.3 mL 0.3 mg (0.3 mL) IM Q5-15M PRN 04/04/24 injection, auto-injector (Auvi-Q) anaphylaxis #2 ea Allergies Allergy/AdvReac Type Severity Reaction Status Date / Time grass pollen-perennial rye, Allergy Severe anaphylacti Verified 10/28/22 16:13 standar c [GRASS POLL-PERENNIAL RYE,STD] beclomethasone Allergy Mild anaphylaxis Verified 10/28/22 16:13 [BECLOMETHASONE] montelukast [MONTELUKAST] Allergy Unknown RASH Verified 10/28/22 16:13 Patient History <Agusto Guerra MD - Last Filed: 04/04/24 16:11> Medical History (Updated 04/04/24 @ 08:39 by Bright Perry DO) Hypothyroidism Surgical History Status post ovarian cystectomy (06/27/16) Status post hysterectomy (06/27/16) Social History Smoking Status: Never smoker Smoking Status: Never smoker alcohol intake frequency: 3 or more drinks per day Alcohol type: beer Exam <Agusto Guerra MD - Last Filed: 04/04/24 16:11> Narrative Exam Narrative: GENERAL: Well-developed patient, in mild distress. HEAD: Atraumatic. Normocephalic. EYES: Pupils equal round and reactive. Extraocular motions intact. No scleral icterus. No injection or drainage. ENT: Face atraumatic, anterior neck with well-healed low transverse scar consistent with thyroid surgery that is well healed, no abnormal appearing anterior neck masses, normal phonation, handling secretions well. NECK: Trachea midline. Non tender CARDIOVASCULAR: Regular rate and rhythm without murmurs, gallops, or rubs. RESPIRATORY: Clear to auscultation. Breath sounds equal bilaterally. No wheezes, rales, or rhonchi. GASTROINTESTINAL: Abdomen soft, non-tender, nondistended. EXTREMITIES: No edema or joint tenderness. BACK: Nontender without deformity or crepitance. No flank tenderness. NEURO: AOx3. Motor functions grossly nonfocal SKIN: No rash or erythema of visible areas Initial Vital Signs Initial Vital Signs: Vital Signs Pulse Oximetry 100 04/04/24 05:13 <Bright Perry DO - Last Filed: 04/04/24 08:40> Initial Vital Signs Initial Vital Signs: Vital Signs Pulse Oximetry 100 04/04/24 05:13 Course <Agusto Guerra MD - Last Filed: 04/04/24 16:11> Orders Ordered: Discontinued Medications Albuterol (Albuterol 2.5 Mg/3 Ml Neb (Adult)) 2.5 mg INH NOW ONE Stop: 04/04/24 06:11 Diphenhydramine HCl (Diphenhydramine 50 Mg/Ml Vial) 50 mg IV NOW ONE Stop: 04/04/24 06:03 Last Admin: 04/04/24 06:13 Dose: 50 mg Documented By: MR Famotidine (Famotidine 20 Mg/2 Ml Vial) 40 mg IV NOW [facility] Last Admin: 04/04/24 06:16 Dose: 40 mg Documented By: MR Methylprednisolone (Methylprednisolone 125 Mg/2 Ml Vial) 125 mg IV NOW ONE Stop: 04/04/24 06:03 Last Admin: 04/04/24 06:16 Dose: 125 mg Documented By: MR Vital Signs Vital signs: Vital Signs - 8 hr 04/04/24 08:30 04/04/24 08:30 Pulse Rate 81 Blood Pressure 113/77 Pulse Oximetry 95 <Bright Perry DO - Last Filed: 04/04/24 08:40> Orders Ordered: Discontinued Medications Albuterol (Albuterol 2.5 Mg/3 Ml Neb (Adult)) 2.5 mg INH NOW ONE Stop: 04/04/24 06:11 Diphenhydramine HCl (Diphenhydramine 50 Mg/Ml Vial) 50 mg IV NOW ONE Stop: 04/04/24 06:03 Last Admin: 04/04/24 06:13 Dose: 50 mg Documented By: MR Famotidine (Famotidine 20 Mg/2 Ml Vial) 40 mg IV NOW [facility] Last Admin: 04/04/24 06:16 Dose: 40 mg Documented By: MR Methylprednisolone (Methylprednisolone 125 Mg/2 Ml Vial) 125 mg IV NOW ONE Stop: 04/04/24 06:03 Last Admin: 04/04/24 06:16 Dose: 125 mg Documented By: Vital Signs Vital signs: Vital Signs - 8 hr 04/04/24 08:30 04/04/24 08:30 Pulse Rate 81 Blood Pressure 113/77 Pulse Oximetry 95 MDM - Allergic Reaction <Agusto Guerra MD - Last Filed: 04/04/24 16:11> Lab Data 04/04/24 06:30 04/04/24 06:30 Labs: Lab Results 04/04/24 Range/Units 06:30 WBC 5.7 (4.5-11.0) X10^3/uL RBC 3.63 L (4.0-5.2) X10^6/uL Hgb 12.3 (12.0-16.0) g/dL Hct 36.0 (36-46) % MCV 99.3 (80-100) fL MCH 34.0 (26-34) PG MCHC 34.3 (30-36) % RDW 12.1 (11.6-14.8) % Plt Count 274 (150-400) X10^3/uL Neut % (Auto) 43.7 L (50-75) % Lymph % (Auto) 43.0 H (25-40) % [place] % (Auto) 10.2 (3-14) % Eos % (Auto) 1.6 L (2-4) % Baso % (Auto) 1.5 (0-2) % Neut # (Auto) 2500 (5779-8099) /uL Lymph # (Auto) 2400 (0345-8792) /uL [place] # (Auto) 600 (0-900) /uL Eos # (Auto) 100 (0-450) /uL Baso # (Auto) 100 (0-100) /uL PT 11.6 (9.4-12.5) SECONDS INR 1.0 (0.9-1.3) Sodium 139 (137-145) mmol/L Potassium 4.0 (3.4-5.1) mmol/L Chloride 105 (98-107) mmol/L Carbon Dioxide 24 (22-32) mmol/L BUN 11 (7-17) mg/dL Creatinine 0.62 (0.52-1.04) mg/dL Estimated GFR > 60 (>60) mL/min BUN/Creatinine Ratio 17.7 (6-22) Glucose 82 (70-100) mg/dL Calcium 8.6 (8.4-10.2) mg/dL Total Bilirubin 0.3 (0.2-1.3) mg/dL AST 29 (14-36) IU/L ALT 19 (<35) IU/L Alkaline Phosphatase 52 (38-126) U/L Total Protein 7.6 (6.3-8.2) g/dL Albumin 4.3 (3.5-5.0) g/dL Globulin 3.3 (1.7-4.1) g/dL Albumin/Globulin Ratio 1.3 (1.0-2.8) SARS-CoV-2 (PCR) Negative (Negative) Influenza A (RT-PCR) Flu a negative (NEGATIVE) Influenza B (RT-PCR) Flu b negative (NEGATIVE) RSV (PCR) Negative (Negative) MDM Narrative Medical decision making narrative: 49-year-old female with history of Jerome's, GE reflux, thyroid cancer, anaphylactoid reactions, awoke with throat tightening sensation and self administered epinephrine and called 911, subsequently had expect duration/cough of some bright red blood. No wheeze on exam, seems to be moving neck well, no angioedema like changes seemed to be present face tongue lips. She is allergic to betamethasone. IV Solu-Medrol, IV Benadryl, IV Pepcid. Nebulized albuterol. Labs pending. If GFR favorable we will obtain CT soft tissue neck, CT angio chest. COVID/influenza swab 0700, labs show normal GFR, also normal WBC Hb Platelets INR, CTA/CT imaging stuies ordered, signed out to Dr Perry. 0700 (Dr. Perry): Patient is signed out to me by overnight provider, patient with a history of Ionia's, GE reflux, thyroid cancer, anaphylaxis presented for possible allergic reaction, patient did self administer epinephrine prior to arrival. States that after did 1 episode of hemoptysis, however here not having any persistent hemoptysis. Patient has received allergic reaction medication, protecting airway speaking full sentences, final disposition pending imaging studies as well as re-evaluation. 0830: Patient was re-evaluated no complaints at this time, states symptoms have completely resolved, she is status post 4 hours after self administration of EpiPen. Patient is speaking full sentences protecting airway no voice changes no stridor no trismus. She states that she already called her doctor who normally prescribes her steroids for history of Ionia's and is going to have double dose stress steroids, she will be sent home I informed her to also take Pepcid and will be sent home with EpiPen as well as strict return precautions she verbalized understanding of this and agrees to being discharged home with outpatient follow up. <Bright Perry, DO - Last Filed: 04/04/24 08:40> Differential Diagnosis Differential diagnosis: Likely anaphylaxis, allergic reaction, adverse reaction to drug and other Lab Data Labs: Lab Results 04/04/24 Range/Units 06:30 WBC 5.7 (4.5-11.0) X10^3/uL RBC 3.63 L (4.0-5.2) X10^6/uL Hgb 12.3 (12.0-16.0) g/dL Hct 36.0 (36-46) % MCV 99.3 (80-100) fL MCH 34.0 (26-34) PG MCHC 34.3 (30-36) % RDW 12.1 (11.6-14.8) % Plt Count 274 (150-400) X10^3/uL Neut % (Auto) 43.7 L (50-75) % Lymph % (Auto) 43.0 H (25-40) % [place] % (Auto) 10.2 (3-14) % Eos % (Auto) 1.6 L (2-4) % Baso % (Auto) 1.5 (0-2) % Neut # (Auto) 2500 (5839-4055) /uL Lymph # (Auto) 2400 (4806-7932) /uL [place] # (Auto) 600 (0-900) /uL Eos # (Auto) 100 (0-450) /uL Baso # (Auto) 100 (0-100) /uL PT 11.6 (9.4-12.5) SECONDS INR 1.0 (0.9-1.3) Sodium 139 (137-145) mmol/L Potassium 4.0 (3.4-5.1) mmol/L Chloride 105 (98-107) mmol/L Carbon Dioxide 24 (22-32) mmol/L BUN 11 (7-17) mg/dL Creatinine 0.62 (0.52-1.04) mg/dL Estimated GFR > 60 (>60) mL/min BUN/Creatinine Ratio 17.7 (6-22) Glucose 82 (70-100) mg/dL Calcium 8.6 (8.4-10.2) mg/dL Total Bilirubin 0.3 (0.2-1.3) mg/dL AST 29 (14-36) IU/L ALT 19 (<35) IU/L Alkaline Phosphatase 52 (38-126) U/L Total Protein 7.6 (6.3-8.2) g/dL Albumin 4.3 (3.5-5.0) g/dL Globulin 3.3 (1.7-4.1) g/dL Albumin/Globulin Ratio 1.3 (1.0-2.8) SARS-CoV-2 (PCR) Negative (Negative) Influenza A (RT-PCR) Flu a negative (NEGATIVE) Influenza B (RT-PCR) Flu b negative (NEGATIVE) RSV (PCR) Negative (Negative) Imaging Data ct soft tissue neck: Radiologist's Impression: Preliminary read showing no acute findings CT scan - chest: Radiologist's Impression: Preliminary read showing no PE no aortic dissection 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 No wheeze on exam, seems to be moving neck well, no angioedema like changes seemed to be present face tongue lips. She is allergic to betamethasone. IV Solu-Medrol, IV Benadryl, IV Pepcid. Nebulized albuterol. Labs pending. If GFR favorable we will obtain CT soft tissue neck, CT angio chest. COVID/influenza swab 0700, labs and imaging study results pending, signed out to Dr Perry 0700 (Dr. Perry): Patient is signed out to me by overnight provider, patient with a history of Ionia's, GE reflux, thyroid cancer, anaphylaxis presented for possible allergic reaction, patient did self administer epinephrine prior to arrival. States that after did 1 episode of hemoptysis, however here not having any persistent hemoptysis. Patient has received allergic reaction medication, protecting airway speaking full sentences, final disposition pending imaging studies as well as re-evaluation. 0830: Patient was re-evaluated no complaints at this time, states symptoms have completely resolved, she is status post 4 hours after self administration of EpiPen. Patient is speaking full sentences protecting airway no voice changes no stridor no trismus. She states that she already called her doctor who normally prescribes her steroids for history of Ionia's and is going to have double dose stress steroids, she will be sent home I informed her to also take Pepcid and will be sent home with EpiPen as well as strict return precautions she verbalized understanding of this and agrees to being discharged home with outpatient follow up. Discharge Plan Departure Patient Disposition: Home Clinical Impression: Allergic reaction Instructions: DI for Anaphylaxis Activity Restrictions/Additional Instructions: Please follow up with primary care Please read the discharge instructions sheet carefully and bring all papers to all doctor follow-up visits, as it may contain information that your doctor may want to see. Disease processes change and evolve, if your symptoms worsen or if you develop any new symptoms that are concerning to you please return for evaluation. Your evaluation today does not show any evidence of any life- threatening/serious illnesses requiring admission to the hospital or surgery. Please follow-up with your doctor for re-evaluation in approximately 1 day. Seek immediate medical attention for any worrisome symptoms. *If you do not have a primary care provider please contact the [facility] Resource line at [phone]. They will ask some questions about your medical history and help get you set up with a doctor in the community. Prescriptions: New epinephrine [Auvi-Q] 0.3 mg/0.3 mL auto-injector 0.3 mg IM Q5-15M PRN (Reason: anaphylaxis) Qty: 2 2RF Rx Instructions: do not exceed 3 doses per episode No Action albuterol sulfate 2.5 MG/3 ML solution for nebulization 3 ml INH QIDP PRNQty: 0 acetaminophen 325 MG tablet 325 mg PO PRN PRN (Reason: pain) Qty: 0 omeprazole 20 MG capsule,delayed release(DR/EC) 40 mg PO QDAY Qty: 0 levothyroxine 200 MCG tablet 200 mcg PO DAILY Qty: 0 docusate sodium 100 MG capsule 200 mg PO QDAYP PRNQty: 0 methylphenidate HCl 10 mg tablet 10 mg PO BID meloxicam 15 mg tablet 15 mg PO DAILY methylphenidate HCl 54 mg tablet extended release 24hr 54 mg PO DAILY ibuprofen 600 mg tablet 600 mg PO TID hydrocodone-acetaminophen 5-325 mg tablet 1 tab PO Q6H PRN (Reason: pain) Qty: 14 0RF diazepam [Valium] 5 mg tablet 5 mg PO Q12HR PRN (Reason: muscle spasm) Qty: 14 0RF epinephrine [EpiPen 2-Brien] 0.3 mg/0.3 mL auto-injector 0.3 mg IM Q5-15M PRN (Reason: anaphylaxis) Qty: 2 0RF Rx Instructions: do not exceed 3 doses per episode Referrals: Rena Fritz PA-C [Primary Care Provider] - Stand Alone Forms: Patient Portal/API/Survey
--- NOTE | 2024-04-04 05:59 | DI.CT.S_ITS ---
PROCEDURE: CT ANGIO CHEST PE PROTOCOL INDICATIONS: coughed/expectorated blood TECHNIQUE: After the administration of intravenous contrast, 2 mm thick sections acquired from the pulmonary apices to the posterior costophrenic angles. 3-dimensional maximum intensity projection (MIP) coronal and sagittal reformats were then acquired through the thorax. For radiation dose reduction, the following was used: automated exposure control, adjustment of mA and/or kV according to patient size. COMPARISON: None. FINDINGS: Image quality: Diagnostic. Pulmonary arteries: Pulmonary arteries are normal in size, and demonstrate no intraluminal filling defects to suggest central pulmonary embolism. Lower Neck: No enlarged lymph nodes. Thyroid: No thyroid nodules which require sonographic follow up, per consensus guidelines. Axillae: No enlarged lymph nodes. Chest Wall: Unremarkable. Bones: Unremarkable. Lungs and Pleura: No pneumothorax or pleural effusions. No consolidation or suspicious nodules. Heart: Heart size is normal. No pericardial effusion. Thoracic Vessels: Ascending aorta is ectatic but not frankly aneurysmal. It measures 3.9 cm. Mediastinum and [place]: No enlarged lymph nodes. Esophagus: No wall thickening. No hiatal hernia. Upper Abdomen: Visualized upper abdomen solid organs and bowel loops appear normal. IMPRESSION: No pulmonary embolus. No acute cardiopulmonary process. Ascending aortic ectasia. Comment: Final report is concordant with preliminary interpretation provided by [facility]. Dictated by: Alphonso Poon M.D. on 04/04/2024 at 8:32 Approved by: Alphonso Poon M.D. on 04/04/2024 at 8:36
--- NOTE | 2024-04-04 06:00 | DI.CT.S_ITS ---
PROCEDURE: CT SOFT TISSUE NECK W CON INDICATIONS: coughed/expectorated blood TECHNIQUE: After the administration of intravenous contrast, 3.0 mm axial sections acquired from the sella to the aortic arch. Additional oblique axial 3.0 mm sections acquired through the pharynx. 3 mm thick coronal and sagittal reformats were generated. For radiation dose reduction, the following was used: automated exposure control. COMPARISON: None. FINDINGS: Image quality: Excellent. Lymph nodes: No enlarged lymph nodes seen throughout the neck. Vessels: Visualized vasculature appears patent. Neck spaces: The oropharynx, nasopharynx, and pharynx demonstrate no mucosal lesions. The vocal cords, false vocal cords, pyriform sinuses, epiglottis, vallecula, and tongue base all appear normal. Extramucosal spaces appear unremarkable. Glands: The parotid and submandibular glands appear normal. Thyroid gland is diminutive. Miscellaneous: Visualized brain and orbits appear normal. Lung apices appear clear. Superficial soft tissues appear normal. Bones: No suspicious bony lesions. Visualized sinuses and mastoids appear unremarkable. IMPRESSION: Unremarkable neck CT with contrast. Comment: Final report is concordant with preliminary interpretation provided by [facility]. Dictated by: Alphonso Poon M.D. on 04/04/2024 at 8:36 Approved by: Alphonso Poon M.D. on 04/04/2024 at 8:39
[2024-04-04] MEDS: diphenhydrAMINE 50 MG/ML VIAL IV (06:13)
[2024-04-04] MEDS: methylPREDNISolone 125 MG/2 ML VIAL IV (06:16)
[2024-04-04] MEDS: FAMOTIDINE 20 MG/2 ML VIAL 40 MG IV (06:16)
[2024-04-04 06:39] LABS: Add Manual Diff / Slide Review NO; Basophils Absolute Auto 100 /uL (0-100); Basophils Percent Auto 1.5 % (0-2); Eosinophils Absolute Auto 100 /uL (0-450); Eosinophils Percent Auto 1.6 % (2-4); Hemoglobin 12.3 g/dL (12.0-16.0); Lymphocytes Absolute Auto 2400 /uL (1100-4500); Mean Corpuscular HGB Conc 34.3 % (30-36); Mean Corpuscular Volume 99.3 fL (80-100); Monocytes Absolute Auto 600 /uL (0-900); Monocytes Percent Auto 10.2 % (3-14); Neutrophils Absolute Auto 2500 /uL (1500-7000); Neutrophils Percent Auto 43.7 % (50-75); Platelet Count 274 X10^3/uL (150-400); Red Blood Cell Count 3.63 X10^6/uL (4.0-5.2); Red Cell Distribution Width 12.1 % (11.6-14.8); White Blood Cell Count 5.7 X10^3/uL (4.5-11.0)
[2024-04-04 06:46] LABS: Prothrombin Time 11.6 SECONDS (9.4-12.5)
[2024-04-04 06:50] LABS: Alanine Aminotransferase 19 IU/L (<35); Albumin 4.3 g/dL (3.5-5.0); Albumin Globulin Ratio 1.3 (1.0-2.8); Alkaline Phosphatase 52 U/L (38-126); Aspartate Aminotransferase 29 IU/L (14-36); BUN Creatinine Ratio 17.7 (6-22); Bilirubin Total 0.3 mg/dL (0.2-1.3); Blood Urea Nitrogen 11 mg/dL (7-17); Calcium 8.6 mg/dL (8.4-10.2); Carbon Dioxide 24 mmol/L (22-32); Chloride 105 mmol/L (98-107); Estimated Glomerular Filt Rate > 60 mL/min (>60); Globulin 3.3 g/dL (1.7-4.1); Glucose 82 mg/dL (70-100); HEMOLYSIS < 15 (0-50); Sodium 139 mmol/L (137-145); Total Protein 7.6 g/dL (6.3-8.2)
--- NOTE | 2024-04-04 06:55 | PC.NURSE ---
RT set up albuterol treatment to give when patient got back from CT. Asked me to start it
[2024-04-04 07:21] LABS: Influenza A - CEPHEID Flu A NEGATIVE (NEGATIVE); Influenza B - CEPHEID Flu B NEGATIVE (NEGATIVE); Respiratory Syncytial Virus Negative (Negative)
[2024-04-04 07:22] LABS: COVID-19 CEPHEID 4-PLEX PCR Negative (Negative)
== END 2024-04-04 08:47 | disposition home or self-care (01) ==
PROVIDERS: Emergency Medicine; Emergency Provider Student in an Organized Health Care Education/Training Program; Family Provider Internal Medicine; PCP Physician Assistant
DX: T78.40XA Allergy, unspecified, initial encounter (principal); R04.2 Hemoptysis
CPT/HCPCS: 0241U; 36415; 70491; 71275; 80053; 85025; 85610; 96374; 96375; 99284; J1200; J2919; Q9967

== ENCOUNTER 2024-07-01 09:45 | Outpatient (RCR) | payer OTHER, SELFPAY ==
--- NOTE | 2024-06-05 14:25 | OT.OPPOC ---
Physical, Occupational & Speech Therapy At [facility] Taylor Scruggs [id number] 1975 Visit Care Team Role Provider Type Rena Fritz PA-C Primary Care Provider Advanced [employer] Fusion Developer Address: [address] [place] [address], [id number] Segundo Winchester MD Family Provider Physician Address: [address] [place] [address] [id number], [place], [address] Doctor Justin MD Attending Provider Non-Staff Referring Provider Address: Phone: Fax: Occupational Therapy Plan of Care OT Outpatient Adult Evaluation Start: 06/05/24 09:51 Freq: Status: Active Protocol: Document 06/05/24 09:51 CAROLE (Rec: 06/05/24 10:09 CAROLE [id number]) General Information - Adult Visit Information Visit Number 1 Plan of Care Dates 06/05/24 - 07/17/24 Insurance Information [employer], no pre-auth for initial 6 visits (including eval), max 25 PT/OT/ST Session Time Visit Start Date 06/05/24 Visit Start Time 09:45 Visit Stop Time 10:30 Setting Treatment Setting Outpatient Care Visit Type Note Type Initial Evaluation Referral Referring Physician Mario Louise Reason for Referral R lateral epicondilytis Precautions s/p open lateral condyle debridement and tendon repair 04/02/24 Identification Identification Confirmed Yes Identification Confirmed By name, EMR Patient Questionnaires Quick Dash- Upper Extremity Quick Dash UE Score 68.2 Quick Dash UE Impairment 60 to 79% Impaired (Score 60- 79) Quick Dash- Work and Sports Modules Quick Dash W&S Score S 75 Quick Dash Work and Sport Impairment 60 to 79% Impaired (Score 60- 79) Goals Objective Measurements Objective Measurements AROM: R elbow: flexion 140 (L 155), extension -10 (L +4); R forearm: supination 90, pronation 75 (R 90); wrist WFL /WNL (p! with wrist flexion); shoulder ER in neutral R 50 (L 70) Statistical Methods Professor: R 40, 35, 40 (avg 38.3#) , L 35, 32, 35 (avg 34#) Pinch: lateral R 9# (c p!) L 11#; pincer R 7#, L 8# Treatment Treatment Pt educated on scar massage and desensitization technique for R elbow. OT stressed the importance of performing these regularly and discussed the reasoning behind both techniques. Pt verbalized understanding. Short Term Goals Short Term Goals 1. Pt will be I with initial HEP (desensitization and scar massage) 2. Pt will participate in traditional MMT assessment, appropriate goals to follow. Vice President Media Relations Goals [facility] Goals 1. Pt will arrive to therapy in non-guarded position without c/o p! at rest. 2. Pt will demonstrate R elbow total active motion of 145 of better for improved use with BADLs. 3. Pt will demonstrate R forearm supination of 85 deg for improved use with ladle patcher. 4. Pt will be I with advanced HEP. Assessment/Plan Assessment Patient Response Good Rehabilitation Potential Excellent Impairments Identified ADLs,Body Mechanics, Coordination/Dexterity, Flexibility,Functional Activities,Pain,Weakness, Posture,Range of Motion, Meaningful Activities, Stiffness,Swelling,Soft Tissue Mobility,Motor Planning Treatment Assessment Pt?s primary complaint is persistent pain at lateral R elbow. Pain at times includes bicep and forearm. Pt does not rate pain but grimaces, jumps, and pulls back from light touch stimulation and with AROM (especially when she has elbow flex and shoulder abducted and IR). Pt describes p! as sharp and static like. Pt reports that her parents are deaf and that she has to use her hands to communicate with them, this can be painful. Pt has 11 year old twins. Pt reports she has pain when pushing up from chair/couch, folding clothes, is unable to walk the dog, has pain with ladle patcher, and is currently unable to ride he mountain bike. Pt is hoping to be able to return to these tasks by this summer. Pt also c/o of p! with don/ doff shirt, eating with a fork , vibration when resting arm on center console, backing up her travel trailer, crossing her arms, and putting her hair up. OT notes that pt holds her R UE in guarded posture, keeping it close to her body and across midline. Pt fidgets frequently and makes verbalizations that make OT believe she is experiencing p! . Pt makes many comments about all touch hurting her lateral R elbow, pt would likely benefit from desensitization techniques. Pt?s scar at R lateral elbow appear smooth. OT doesn?t note any excessive scarring. Pt has a small amount of localized swelling at lateral R elbow. Pt presents with decreased AROM of R elbow/ forearm/shoulder ER. Pt was unable to tolerate traditional MMT today due to fearfulness of pain. OT will assess as pts trust is gained. OT anticipates decreased strength to be present on R. Skilled OT services are appropriate to provide necessary education for activity modification, desensitization, scar mgmt., and to address muscle weakness , AROM, and decreased BADL/ IADLs. Reviewed with Patient Goals Plan Length of treatment (weeks) 6 Plan of Care Start Date 06/05/24 Plan of Care End Date 07/17/24 Treatment Frequency Once a Week Treatment Duration 45 Minutes Therapeutic Contents Active Range of Motion, Functional Activities,Home Exercise Program,Joint Protection,Manual Therapy, Education,Neuromuscular Re- Education,Self-Care,Stretching /Flexibility Activities, Therapeutic Activities, Therapeutic Exercises, Modalities Modalities As Needed Types of Modalities Cyrotherapy,Ice Massage Patient Instruction Home Exercise Program,Plan of Care,Questions/Concerns Functional Wrist/Hand Scan Hand Side Sensory Assessment Sensory Profile2 Electronically Signed by: Frances Yo OT 06/05/24 1232 If you are in agreement with this Plan of Care, please return a signed and dated copy. I have reviewed this Plan of Care and certify that the skilled therapy services above are required to meet the patient?s needs. Physician Signature Date Printed Name and Credentials Clinical Instructor Signature Printed Name and Credentials
--- NOTE | 2024-06-24 10:44 | OT.OP.TRT ---
Visit Care Team Role Provider Type Doctor MD Justin Referring Provider Non-Staff Specialty: Medical Address: Phone: Fax: Email: Rena Fritz PA-C Primary Care Provider Advanced Bliss Press Operator Specialty: Medical Address: [address] [place], [address] Email: Segundo Winchester MD Family Provider Physician Specialty: Internal Medicine Address: [address] [place] [address] [id number], [place], [address] Email: Mario Louise MD Attending Provider Non-Staff Specialty: Orthopedics Address: [address] [place] [address], [id number] Email: Occupational Therapy Treatment Note OT Outpatient Treatment Note - Adult Start: 06/05/24 09:51 Freq: Status: Active Protocol: Document 06/24/24 09:50 CAROLE (Rec: 06/24/24 10:43 [email or web address] [id number]) OT Outpatient Adult Treatment Note Session Time Visit Start Date 06/24/24 Visit Start Time 09:50 Visit Stop Time 10:20 Visit Information Visit Number 2/6 Plan of Care Dates 06/05/24 - 07/17/24 Insurance Information [employer], no pre-auth for initial 6 visits (including eval), max 25 OT/PT/ST - Subjective Identification Type Name Identification Reconciled With Medical Record Observations Pt reports that after her eval she had redness and pain at her elbow. She followed up with her surgeon who told her to hold off on therapy for 2 weeks. she follows up again with the surgeon this . Pt also held off on her HEP of scar massage and desensitization per MD instruction. Pt reports that she forgot to take her gabapentin this morning. Pt asked to cut session short due to c/o p!. Pt refused to continue with ice massage. Pt rates p! at 7/10 at end of tx and states it's in her entire arm Chief Complaint(s) Loss of Motion/Stiffness,Pain Effect on Activity,Restricts - Objective Short Term Goals 1. Pt will be I with initial HEP (desensitization and scar massage) 2. Pt will participate in traditional MMT assessment, appropriate goals to follow. Irrigation Equipment Mechanic Goals 1. Pt will arrive to therapy in non-guarded position without c/o p! at rest. 2. Pt will demonstrate R elbow total active motion of 145 of better for improved use with BADLs. 3. Pt will demonstrate R forearm supination of 85 deg for improved use with fisher sponge hooking. 4. Pt will be I with advanced HEP. - Treatment 3 Descriptor Ice massage to R lateral elbow . Pt tolerates for approximately 2 minutes. 2 Descriptor Education: Pt asks when she is going to be able to work on strengthening and other tasks , OT reminded pt that she had difficulty tolerating AROM today, and educated on progression of exercises. 1 Descriptor OT demonstrates desensitization technique for over-reactive nerve response at lateral R elbow. OT initiates and encourages pt to take over with each texture attempted. Pt tolerates silk scarf, hospital glove, and tissue with min encouragement. OT attempted a pillowcase but pt found the stimulus to extreme and refused to continue. OT educates pt on performing this at home for 5 minutes 2-3 times a day and encourages pt to work toward textures that are tolerable but uncomfortable. Pt verbalizes understanding. Exercises 1 Descriptor AROM: elbow flexion and extension (palm up, neutral, and palm down) x10 each pronation and supination x10 Manual Therapy Manual Therapy scar massage performed to lateral R elbow as tolerated. OT educates pt on how to perform for herself as part of her HEP. Pt verbalizes understanding. - Assessment Patient Response to Treatment Fair Rehabilitation Potential Good Impairments Identified ADLs,Body Mechanics, Coordination/Dexterity, Flexibility,Functional Activities,Pain,Weakness, Posture,Range of Motion, Meaningful Activities, Stiffness,Swelling,Soft Tissue Mobility,Motor Planning Progress Towards Goals Slow Progress Assessment of Overall Progress Unchanged Assessment of Improvement Pt has a difficult time tolerating all activities today due to hyperreactive response, including AROM, desensitization, and scar massage. OT provides extensive education on purpose of each for her recovery, especially at reducing pt's fight or flight response with all touch to her R elbow. Pt verbalizes understanding. Pt refused ice massage after less than 2 minutes and requested to stop therapy session due to p! c/o 08/22. Pt also asks when we can progress to more intense exercises and strength training. OT re-explained the purpose of what we are performing now and the need for her body to tolerate AROM and desensitization prior to progressing further. Pt verbalizes understanding. Pt continues to be appropriate for skilled OT services, cont per established POC. Reviewed with Patient/Caregiver Goals,Progress Being Made,Home Exercise Program Patient/Caregiver Understanding Good - Plan Therapy Recommendations Continue with Current Program Amount of Therapy Recommended 1-2 Months Frequency of Treatment Once a Week Length of Session 45 Minutes Therapeutic Contents Active Range of Motion, Functional Activities,Home Exercise Program,Joint Protection,Manual Therapy, Education,Neuromuscular Re- Education,Self-Care,Stretching /Flexibility Activities, Therapeutic Activities, Therapeutic Exercises, Modalities Modalities As Needed Types of Modalities Cyrotherapy,Ice Massage
--- NOTE | 2024-07-01 10:40 | OT.OP.TRT ---
Visit Care Team Role Provider Type Doctor MD Justin Referring Provider Non-Staff Specialty: Medical Address: Phone: Fax: Email: Rena Fritz PA-C Primary Care Provider Advanced Coil Finisher Specialty: Medical Address: [address] [place] [address], [address] Email: Segundo Winchester MD Family Provider Physician Specialty: Internal Medicine Address: [address] [place] [address] [id number], [place], [address] Email: Mario Louise MD Attending Provider Non-Staff Specialty: Orthopedics Address: [address] [place] [address], [id number] Email: Occupational Therapy Treatment Note OT Outpatient Treatment Note - Adult Start: 06/05/24 09:51 Freq: Status: Active Protocol: Document 07/01/24 09:50 CAROLE (Rec: 07/01/24 09:13 CAROLE [id number]) OT Outpatient Adult Treatment Note Session Time Visit Start Date 07/01/24 Visit Start Time 09:50 Visit Stop Time 10:30 Visit Information Visit Number 3/6 Plan of Care Dates 06/05/24 - 07/17/24 Insurance Information [employer], no pre-auth for initial 6 visits (including eval), max 25 OT/PT/ST Setting Treatment Setting Outpatient Care Visit Type Note Type Initial Evaluation - Subjective Identification Type Name Identification Reconciled With Medical Record Observations Pt reports that she is not performing her HEP. Pt states it didn't get flared up at all after last time. She reports that she is gently rubbing her elbow over top of whatever she is wearing. Pt reports that she has increased pain especially with reaching forward and if her elbow is bumped. If I am opening a baggy like fruit snacks that hurts the very most. Pt rates p! at 0/10 at start of tx, 3/10 during tx and 4/10 at end of tx. Pt reports that her muscles got tired during tx. Chief Complaint(s) Loss of Motion/Stiffness,Pain Effect on Activity,Restricts - Objective Objective Measurements MMT: elbow flex R 3+, L 5; elbow ext R 4-, L 5; pronation R 3+, L 5; supination R 4, L 4+; wrist flex R 4+, L 4+; wrist ext R 4+, L 5 Short Term Goals 1. Pt will be I with initial HEP (desensitization and scar massage). (D/C, pt declines to perform) 2. Pt will participate in traditional MMT assessment, appropriate goals to follow. MET 07/01/24 3. Pt will increase R elbow flexion and pronation to 4/5 for improved object manipulation and ability to carry items. Snf Goals 1. Pt will arrive to therapy in non-guarded position without c/o p! at rest. 2. Pt will demonstrate R elbow total active motion of 145 of better for improved use with BADLs. 3. Pt will demonstrate R forearm supination of 85 deg for improved use with rod finisher. 4. Pt will be I with advanced HEP. - Treatment 2 Descriptor Education: 1 Descriptor Flex bar: -pronation and supination 30 seconds x 2 Exercises 2 Descriptor Gripping/Pinching: -digi flex red 60 seconds -graded clothespins (on and off perpendicular dowels) yellow-black -digit service center manager (lt green) 1 Descriptor Strengthening: Isometric: 5 second holds 10x2 -elbow flexion -elbow extension -forearm pronation -forearm supination -wrist flexion -wrist extension - Assessment Patient Response to Treatment Good Rehabilitation Potential Good Impairments Identified ADLs,Body Mechanics, Coordination/Dexterity, Flexibility,Functional Activities,Pain,Weakness, Posture,Range of Motion, Meaningful Activities, Stiffness,Swelling,Soft Tissue Mobility,Motor Planning Progress Towards Goals Good Progress Assessment of Overall Progress Improving Assessment of Improvement OT observes pt keeping her R UE tucked into her body when entering therapy. Pt reports she likes to keep her arms crossed across her torso. Pt reports that she has not been performing her HEP. She likewise reports that she no longer has sensitivity to textures or light touch and that her scar is no longer bothering her. D/C desensitization and scar massage due to pt's non- compliance with HEP and pt no longer having complaints with these. Pt able to tolerate MMT assessment, meeting STG. Pt also tolerates isometric exercises for elbow, forearm, and wrist. Pt issued these to be performed at home for HEP. OT will review at next tx. Pt reports muscle fatigue with tx and some increase in p!. Overall, pt tolerates tx very well and continues to be appropriate for skilled OT services, cont per established POC. Reviewed with Patient/Caregiver Goals,Progress Being Made,Home Exercise Program Patient/Caregiver Understanding Good - Plan Therapy Recommendations Continue with Current Program Amount of Therapy Recommended 1-2 Months Frequency of Treatment Once a Week Length of Session 45 Minutes Therapeutic Contents Active Range of Motion, Functional Activities,Home Exercise Program,Joint Protection,Manual Therapy, Education,Neuromuscular Re- Education,Self-Care,Stretching /Flexibility Activities, Therapeutic Activities, Therapeutic Exercises, Modalities Modalities As Needed Types of Modalities Cyrotherapy,Ice Massage
--- NOTE | 2024-07-17 10:11 | OT.OP.DC ---
Visit Care Team Role Provider Type Doctor MD Justin Referring Provider Non-Staff Address: Phone: Fax: Email: Rena Fritz PA-C Primary Care Provider Advanced Medical Lab Scientist Address: [address] [place], [address] Email: Segundo Winchester MD Family Provider Physician Address: [address] [place] [address] [id number], [place], [address] Email: Mario Louise MD Attending Provider Non-Staff Address: [address] [place], [address] Email: OT Outpatient OT Outpatient Adult Evaluation Start: 06/05/24 09:51 Freq: Status: Active Protocol: Document 06/05/24 09:51 ROLDANMNLUL (Rec: 06/05/24 10:09 [email or web address] [id number]) General Information - Adult Visit Information Visit Number 1 Plan of Care Dates 06/05/24 - 07/17/24 Insurance [employer], no pre-auth for initial 6 visits (including Information eval), max 25 PT/OT/ST Session Time Visit Start Date 06/05/24 Visit Start Time 09:45 Visit Stop Time 10:30 Setting Treatment Setting Outpatient Care Visit Type Note Type Initial Evaluation Referral Referring Physician Mario Louise Reason for Referral R lateral epicondliris Precautions s/p open lateral condyle debridement and tendon repair 04/02/24 Identification Identification Yes Confirmed Identification name, EMR Confirmed By Patient Questionnaires Quick Dash- Upper Extremity Quick Dash UE Score 68.2 Quick Dash UE 60 to 79% Impaired (Score 60-79) Impairment Quick Dash- Work and Sports Modules Quick Dash W&S Score S 75 Quick Dash Work and 60 to 79% Impaired (Score 60-79) Sport Impairment Goals Objective Measurements Objective AROM: R elbow: flexion 140 (L 155), extension -10 (L +4 Measurements ); R forearm: supination 90, pronation 75 (R 90); wrist WFL/WNL (p! with wrist flexion); shoulder ER in neutral R 50 (L 70) Filler Shredding Machine Loader: R 40, 35, 40 (avg 38.3#), L 35, 32, 35 (avg 34#) Pinch: lateral R 9# (c p!) L 11#; pincer R 7#, L 8# Treatment Treatment Pt educated on scar massage and desensitization technique for R elbow. OT stressed the importance of performing these regularly and discussed the reasoning behind both techniques. Pt verbalized understanding. Short Term Goals Short Term Goals 1. Pt will be I with initial HEP (desensitization and scar massage) 2. Pt will participate in traditional MMT assessment, appropriate goals to follow. Intermediate Goals Intermediate Goals 1. Pt will arrive to therapy in non-guarded position without c/o p! at rest. 2. Pt will demonstrate R elbow total active motion of 145 of better for improved use with BADLs. 3. Pt will demonstrate R forearm supination of 85 deg for improved use with fine sander. 4. Pt will be I with advanced HEP. Assessment/Plan Assessment Patient Response Good Rehabilitation Excellent Potential Impairments ADLs,Body Mechanics,Coordination/Dexterity,Flexibility, Identified Functional Activities,Pain,Weakness,Posture,Range of Motion,Meaningful Activities,Stiffness,Swelling,Soft Tissue Mobility,Motor Planning Treatment Assessment Pt?s primary complaint is persistent pain at lateral R elbow. Pain at times includes bicep and forearm. Pt does not rate pain but grimaces, jumps, and pulls back from light touch stimulation and with AROM (especially when she has elbow flex and shoulder abducted and IR). Pt describes p! as sharp and static like. Pt reports that her parents are deaf and that she has to use her hands to communicate with them, this can be painful. Pt has 11 year old twins. Pt reports she has pain when pushing up from chair/couch, folding clothes, is unable to walk the dog, has pain with fine sander, and is currently unable to ride he mountain bike. Pt is hoping to be able to return to these tasks by this summer. Pt also c/o of p! with don/doff shirt, eating with a fork, vibration when resting arm on center console, backing up her travel trailer, crossing her arms, and putting her hair up. OT notes that pt holds her R UE in guarded posture, keeping it close to her body and across midline. Pt fidgets frequently and makes verbalizations that make OT believe she is experiencing p!. Pt makes many comments about all touch hurting her lateral R elbow, pt would likely benefit from desensitization techniques . Pt?s scar at R lateral elbow appear smooth. OT doesn ?t note any excessive scarring. Pt has a small amount of localized swelling at lateral R elbow. Pt presents with decreased AROM of R elbow/forearm/shoulder ER. Pt was unable to tolerate traditional MMT today due to fearfulness of pain. OT will assess as pts trust is gained. OT anticipates decreased strength to be present on R. Skilled OT services are appropriate to provide necessary education for activity modification, desensitization, scar mgmt., and to address muscle weakness, AROM, and decreased BADL/IADLs. Reviewed with Goals Patient Plan Length of treatment 6 (weeks) Plan of Care Start 06/05/24 Date Plan of Care End 07/17/24 Date Treatment Frequency Once a Week Treatment Duration 45 Minutes Therapeutic Contents Active Range of Motion,Functional Activities,Home Exercise Program,Joint Protection,Manual Therapy, Education,Neuromuscular Re-Education,Self-Care, Stretching/Flexibility Activities,Therapeutic Activities,Therapeutic Exercises,Modalities Modalities As Needed Types of Modalities Cyrotherapy,Ice Massage Patient Instruction Home Exercise Program,Plan of Care,Questions/Concerns Functional Wrist/Hand Scan Hand Side Sensory Assessment Sensory Profile2 OT Outpatient Treatment Note - Adult Start: 06/05/24 09:51 Freq: Status: Active Protocol: Document 07/17/24 10:04 CAROLE (Rec: 07/17/24 08:54 CAROLE [id number]) OT Outpatient Adult Treatment Note Visit Information Plan of Care Dates 06/05/24 - 07/17/24 Insurance [facility], no pre-auth for initial 6 visits (including Information eval), max 25 OT/PT/ST Setting Treatment Setting Outpatient Care Visit Type Note Type Discharge Summary - Subjective Observations OT called and spoke to pt after pt no-showed for appt. Pt states that she had to take her child to the hospital. OT told pt that today is the end of her POC. Pt stated I'm doing ok, I don't need therapy anymore. - Objective Short Term Goals 1. Pt will be I with initial HEP (desensitization and scar massage). (D/C, pt declines to perform) 2. Pt will participate in traditional MMT assessment, appropriate goals to follow. MET 07/01/24 3. Pt will increase R elbow flexion and pronation to 4/ 5 for improved object manipulation and ability to carry items. Milk Bottler Goals 1. Pt will arrive to therapy in non-guarded position without c/o p! at rest. 2. Pt will demonstrate R elbow total active motion of 145 of better for improved use with BADLs. 3. Pt will demonstrate R forearm supination of 85 deg for improved use with fine sander. 4. Pt will be I with advanced HEP. - - Assessment Patient Response to Good Treatment Rehabilitation Good Potential Impairments ADLs,Body Mechanics,Coordination/Dexterity,Flexibility, Identified Functional Activities,Pain,Weakness,Posture,Range of Motion,Meaningful Activities,Stiffness,Swelling,Soft Tissue Mobility,Motor Planning Progress Towards Good Progress Goals Assessment of Improving Overall Progress Assessment of Pt no-showed for today's appointment. OT called and Improvement spoke to pt stated I'm doing ok, I don't need therapy anymore. When pt initially presented for OT she had significant hypersensitivity. OT educated pt on desensitization and scar massage and provided this information for HEP. Pt reported being non-compliant with HEP. At last tx, pt no longer had this complaint and OT was able to assess MMT and initiate strengthening. D/C pt to HEP per pt request. Patient/Caregiver Good Understanding - Plan Therapy Discharge to Home Exercise Program,Discharge from Recommendations Occupational Therapy
== END 2024-07-29 10:25 | disposition home or self-care (01) ==
LOC: OT 09:45
PROVIDERS: Family Provider Internal Medicine; PCP Physician Assistant; Visit Provider Specialist
DX: M77.11 Lateral epicondylitis, right elbow (principal)
CPT/HCPCS: 97110; 97165; 97530